=== PATIENT | male | born 1945 | race Hispanic/Latino ===

== ENCOUNTER 2016-05-09 11:07 | Inpatient (IN) | payer MEDICARE ==
[2016-05-09] MEDS ORDERED: ATROVENT IH ONE (12:21)
[2016-05-09] MEDS ORDERED: PROVENTIL IH ONE (12:21)
--- NOTE | 2016-05-09 12:21 | Emergency Department Report ---
Chief Complaint: Urogenital-Male Stated Complaint: BLOOD IN URINE Time Seen by Provider: 05/09/16 12:16 - HPI History of Present Illness: Patient here reports that he has blood in his urine. Patient is on Zaroxolyn oh for A. fib he's also on. He reports that his doctor sent him over here because he is having bright red blood in his urine. Patient has a history of COPD stage IV, emphysema he is on oxygen 24 7. He reports that he is having shortness of breath and slight chest pain to his left chest area. He is also reports swelling and redness to his bilateral lower extremities. Patient said that he was at the [place] 2 weeks ago and he had a chest x-ray done he diagnosed him with pneumonia and he was on Augmentin which she took for 14 days. Patient has a history of diabetes also. - ROS Review of Systems: All systems are negative unless stated in HPI above. - Exam Vital Signs: Vital Signs 05/09/16 11:55 Temperature 98.5 F Pulse Rate 80 Respiratory 24 Rate Blood Pressure 118/58 O2 Sat by Pulse 100 Oximetry Physical Exam: General: This is a 71-year-old male that looks sick. Respiratory: Sounds coarse throughout lung matthews. Positive congested cough. Positive rhonchi. He is on oxygen and his O2 sat is that 100% on oxygen. Increased work of breathing. Extremity. Both feet and ankle swollen with redness extending from toes to the dorsal aspect of feet anteriorly. Palpable pedal pulses. MSE screening note: Focused history and physical exam performed. Due to findings the following was ordered:see [facility] ED Medical Decision Making - Medical Decision Making Medical decision making: Patient seen by provider in triage area. Appropriate protocol activated and patient to main ED to be seen by physician. ED Disposition for MSE Condition: Stable
[2016-05-09 14:02] LABS: Basophils % (Auto) 0.5 % (0.0-1.8); Eosinophils % (Auto) 1.7 % (0.0-4.3); Hematocrit 44.3 % (35.5-45.6); Hemoglobin 14.2 gm/dl (11.8-15.2); Mean Corpuscular HGB Conc 32 % (32-34); Mean Corpuscular Hemoglobin 29 pg (28-32); Mean Corpuscular Volume 89 fl (84-94); Platelet Count 393 K/mm3 (140-440); Red Blood Count 4.96 M/mm3 (3.65-5.03); Red Cell Distribution Width 13.7 % (13.2-15.2); White Blood Count 16.7 K/mm3 (4.5-11.0)
[2016-05-09 14:10] LABS: INR 0.99 (0.87-1.13)
[2016-05-09 14:11] LABS: Partial Thromboplastin Time 28.4 Sec. (24.2-36.6)
[2016-05-09 14:18] LABS: Blood Urea Nitrogen 8 mg/dL (9-20); Calcium 9.4 mg/dL (8.4-10.2); Carbon Dioxide 33 mmol/L (22-30); Chloride 86.1 mmol/L (98-107); Glucose 140 mg/dL (75-100); Potassium 4.4 mmol/L (3.6-5.0); Sodium 129 mmol/L (137-145)
[2016-05-09 14:19] LABS: Anion Gap 14 mmol/L
[2016-05-09 14:20] LABS: Creatine Kinase MB 4.5 ng/mL (0.0-4.0)
[2016-05-09 14:21] LABS: Creatine Kinase 42 units/L (55-170)
--- NOTE | 2016-05-09 14:41 | Cat Scan Report ---
CT ABDOMEN AND PELVIS WITHOUT CONTRAST INDICATION: Hematuria. COMPARISON: 03/07/2012 FINDINGS: Noncontrast abdomen and pelvis CT performed. LUNG BASES: Approximately 1.2 cm focal nodular and other more inferior probable lingular scarring, axial series 2, images 3-25, previously partially imaged. Normal heart size. Few atherosclerotic calcifications. Nonspecific distal esophageal wall thickening, not excluded for gastroesophageal reflux and/or hiatal hernia, amongst others. ABDOMEN: Please note that sensitivity to detect small visceral lesions is limited due to the absence of intravenous or oral contrast. Mild interval enlargement of the right hemiabdomen soft tissue mass situated near the pancreatic head with its origin possibly from the second portion of the duodenum or the mesentery, amongst others. It again demonstrates some intrinsic heterogeneity with small low density/necrotic areas. It now measures 6.8 cm AP x 6.1 cm transverse, previously approximately 5.5 x 5.7 cm respectively. Few small calcifications in this mass also noted on the left peripherally, axial images 134-155. No duodenal obstruction, though evaluation of nonopacified GI tract limited. Normal appendix. Slight diffuse fatty hepatic infiltration may persist, though appears much improved in the interval. Mild pericholecystic fatty sparing may be noted. Mild left adrenal prominence/enlargement is stable, axial image 87. Otherwise grossly unremarkable unenhanced liver, spleen, gallbladder, pancreas, right adrenal, nonaneurysmal abdominal aorta with atherosclerotic calcifications and IVC. No ascites or significant adenopathy. Specifically, few bilateral intrarenal calculi again noted. 2 or possibly 3 right upper to mid renal measure upto approximately 5 mm, axial image 108, series 2. A calculus lodged at the right ureteropelvic junction/proximal ureter again noted, now approximately 8 mm in size, axial image 144, series 2, previously 5 mm. Right renal pelvis again slightly prominent relative to the left, though well within normal limits without significant hydronephrosis. Possible right renal cortical cyst or calyceal diverticulum superiorly now measures 3.7 x 2 cm, previously approximately 2 cm. Few right lower renal cortical hypodensities/cysts also now seen measuring up to 1.8 cm, axial image 154, series 2. Left kidney nonhydronephrotic and again demonstrates at least 3 nonobstructing lower pole calculi, the largest approximately 8 mm, axial image 154. Multiple left renal cysts again noted, the largest ones measuring approximately 3.8 cm superiorly and approximately 6.2 cm inferiorly and partly exophytic. At least 2 other left lower renal cortical cysts appearing simple previously are now somewhat hyperdense/possibly hemorrhagic as measuring approximately 1.9 cm anteriorly, axial image 155 and approximately 2 cm off the lower pole, axial image 186, amongst others. PELVIS: Mildly enlarged prostate creating an impression at the bladder base may be correlated for clinically and with PSA. Small prostatic calcifications. Otherwise grossly unremarkable unenhanced urinary bladder, seminal vesicles and the rectum. Innumerable sigmoid and multiple descending colon diverticula. No pelvic free fluid or significant adenopathy. Bilateral fat containing inguinal hernias measuring up to approximately 2.5 cm inferiorly as on axial image 381, series 2 again noted. Demineralized bones with severe L5-S1 disc narrowing with vacuum phenomenon, degenerative spurring and some sclerosis again noted. Few other mild spinal and right hip degenerative changes. CONCLUSION: 1. Mild interval enlargement in large right hemiabdomen mesenteric/duodenal soft tissue mass about the level of the pancreatic head, as described. A slow-growing neoplasm again remains to be excluded, given the appearance. 2. Bilateral nephrolithiasis again noted, stable in number, though slightly more prominent in size, including the right ureteropelvic junction/proximal ureteral calculus measuring slightly larger, as detailed above. 3. Multiple bilateral renal cysts also noted, some new in the interval while some others have become mildly complex/possibly hemorrhagic, as detailed above. 4. Interval improvement in fatty hepatic infiltration. 5. Various other incidental findings, including lingular scarring, diverticulosis, mildly enlarged prostate, small bilateral fat containing inguinal hernias and L5-S1 degenerative changes, amongst others, as above. Thank you for the opportunity to participate in this patient's care.
[2016-05-09 14:53] LABS: Bilirubin,Urine NEG (Negative); Blood,Urine LG (Negative); Ketones,Urine NEG (Negative); Leukocyte Esterase,Urine TR (Negative); Mucus,Urine 1+ /HPF; Nitrite,Urine NEG (Negative); Urobilinogen,Urine < 2.0 mg/dL (<2.0)
[2016-05-09 14:54] LABS: RBC,Urine > 182.0 /HPF (0.0-6.0); WBC,Urine > 182.0 /HPF (0.0-6.0)
--- NOTE | 2016-05-09 14:55 | XRay Report ---
PORTABLE CHEST INDICATION: Cough, shortness of breath. COMPARISON: 03/31/2014 FINDINGS: Portable, frontal chest radiographs, 2 images again demonstrate normal cardiomediastinal silhouette, aortic knob calcifications and hyperexpanded lungs/COPD. Minimal fluid or thickening along the right minor fissure also now seen. No pleural effusions or CHF. EKG leads. Demineralized bones. CONCLUSION: No acute chest process with COPD again noted, as described. Thank you for the opportunity to participate in this patient's care.
[2016-05-09] MEDS ORDERED: ROCEPHIN/NS 1 GM/50 ML 50 ML IV ONE ×2 (16:00→20:00)
--- NOTE | 2016-05-09 17:29 | Emergency Department Report ---
HPI - General Chief Complaint: Urogenital-Male Time Seen by Provider: 05/09/16 15:00 - HPI HPI: Chief complaint: Hematuria HPI: Patient is a 71-year-old male with history of COPD, atrial fibrillation, hypertension, diabetes who is on is a relative who states about 3 days ago he noticed he had gross hematuria. Patient states he stopped his relative but he has continued to have blood in his stool ever since. Patient states about 2 weeks ago he was seen [facility] early [facility] and was placed on 850 mg of Augmentin twice a day as well as a Medrol Dosepak which he has finished just yesterday. Patient does complain of some minimal dysuria but no abdominal pain, fever, nausea or diarrhea. Patient has had a previous history of a kidney stone. Patient states he is no longer coughing up yellow sputum and is now clear to white and has decreased. Mode of arrival: EMS Source: Patient old chart family member Began: 3 days ago Duration: 3 days Context: See above Quality: Pain-free Severity: 0 out of 10 Improved with: Nothing Worsened with: Nothing Associated signs and symptoms: See above ED Past Medical Hx - Past Medical History Previous Medical History?: Yes Hx Hypertension: Yes Hx Congestive Heart Failure: Yes Hx Diabetes: Yes Hx Arthritis: Yes Hx COPD: Yes Additional medical history: high cholesterol - Surgical History Additional Surgical History: R. knee repair, hernia repair - Social History Smoking Status: Former Smoker Substance Use Type: None - Medications Home Medications: Home Medications Medication Instructions Recorded Confirmed Last Taken Type ALBUTEROL Inhaler [ProAir HFA 2 puff IH QID PRN 03/31/14 05/09/16 Unknown History Inhaler] Albuterol Sulfate [Albuterol 0.63% 0.63 mg IH BID PRN 03/31/14 05/09/16 Unknown History NEBS] Tiotropium [Spiriva] 18 mcg IH QDAY 03/31/14 05/09/16 Unknown History glipiZIDE [glipiZIDE ER] 5 mg PO QAM 03/31/14 05/09/16 Unknown History metFORMIN [Glucophage] 1,000 mg PO BID 03/31/14 05/09/16 Unknown History Diltiazem Cd [Cardizem CD] 180 mg PO QDAY #30 capsule 04/01/14 05/09/16 Unknown Rx Rivaroxaban [Xarelto] 20 mg PO QDAY #30 tablet 04/01/14 05/09/16 Unknown Rx AtorvaSTATin [Lipitor] 40 mg PO DAILY 05/09/16 05/09/16 Unknown History Azelastine HCl [Astepro] 205.5 mcg NS DAILY 05/09/16 05/09/16 Unknown History Fluticasone Propionate [Flovent 2 puff IH QPM PRN 05/09/16 05/09/16 Unknown History Diskus] Formoterol Fumarate [Foradil] 24 mcg IH BID 05/09/16 05/09/16 Unknown History Loratadine 10 mg PO DAILY 05/09/16 05/09/16 Unknown History Spironolact/Hydrochlorothiazid 1 each PO QDAY 05/09/16 05/09/16 Unknown History [Spironolactone-Hctz 25-25 Tab] Zolpidem Tartrate [Edluar SUBL] 10 mg SL QHS PRN 05/09/16 05/09/16 Unknown History ED Review of Systems ROS: Stated complaint: BLOOD IN URINE Other details as noted in HPI ROS Constitutional: No fever ENT: No uri symptoms Cardiovascular: No chest pain Respiratory: Chronic sob on home O2 and resolving cough GI: No nausea vomiting or diarrhea : No dysuria frequency or urgency, Skin: No rash Neuro: No focal weakness or numbness Psych: No depression Kenan/lymph: Intermittent pedal edema states previous Doppler is negative for DVT Physical Exam - Physical Exam Vital Signs: Vital Signs 05/09/16 05/09/16 05/09/16 11:55 12:42 13:00 Temperature 98.5 F Pulse Rate 80 Pulse Rate [ 87 87 Anterior Bilateral Throughout] Respiratory 24 Rate Respiratory 20 20 Rate [Anterior Bilateral Throughout] Blood Pressure 118/58 O2 Sat by Pulse 100 Oximetry 05/09/16 05/09/16 05/09/16 14:04 14:05 14:07 Temperature Pulse Rate 91 H 97 H 93 H Pulse Rate [ Anterior Bilateral Throughout] Respiratory 15 18 12 Rate Respiratory Rate [Anterior Bilateral Throughout] Blood Pressure O2 Sat by Pulse 97 97 96 Oximetry 05/09/16 05/09/16 05/09/16 14:09 14:11 14:13 Temperature Pulse Rate 94 H 91 H 91 H Pulse Rate [ Anterior Bilateral Throughout] Respiratory 27 H 21 18 Rate Respiratory Rate [Anterior Bilateral Throughout] Blood Pressure O2 Sat by Pulse 96 96 96 Oximetry 05/09/16 05/09/16 05/09/16 14:15 14:17 14:19 Temperature Pulse Rate 91 H 94 H 94 H Pulse Rate [ Anterior Bilateral Throughout] Respiratory 20 16 20 Rate Respiratory Rate [Anterior Bilateral Throughout] Blood Pressure 104/52 104/52 O2 Sat by Pulse 97 97 96 Oximetry 05/09/16 05/09/16 05/09/16 14:21 14:23 14:25 Temperature Pulse Rate 92 H 91 H 92 H Pulse Rate [ Anterior Bilateral Throughout] Respiratory 27 H 18 23 Rate Respiratory Rate [Anterior Bilateral Throughout] Blood Pressure 104/52 104/52 104/52 O2 Sat by Pulse 96 96 96 Oximetry 05/09/16 05/09/16 05/09/16 14:27 14:29 14:31 Temperature Pulse Rate 95 H 92 H 88 Pulse Rate [ Anterior Bilateral Throughout] Respiratory 24 22 17 Rate Respiratory Rate [Anterior Bilateral Throughout] Blood Pressure 104/52 104/52 104/52 O2 Sat by Pulse 95 94 Oximetry 05/09/16 05/09/16 05/09/16 14:33 14:35 15:15 Temperature Pulse Rate 90 89 88 Pulse Rate [ Anterior Bilateral Throughout] Respiratory 16 13 19 Rate Respiratory Rate [Anterior Bilateral Throughout] Blood Pressure 104/52 104/52 125/66 O2 Sat by Pulse 94 97 96 Oximetry 05/09/16 05/09/16 05/09/16 15:17 15:19 15:21 Temperature Pulse Rate 90 88 91 H Pulse Rate [ Anterior Bilateral Throughout] Respiratory 14 11 L 16 Rate Respiratory Rate [Anterior Bilateral Throughout] Blood Pressure 125/66 125/66 125/66 O2 Sat by Pulse 97 96 96 Oximetry 05/09/16 05/09/16 05/09/16 15:22 15:23 15:25 Temperature Pulse Rate 89 92 H 86 Pulse Rate [ Anterior Bilateral Throughout] Respiratory 21 15 15 Rate Respiratory Rate [Anterior Bilateral Throughout] Blood Pressure 125/66 125/66 125/66 O2 Sat by Pulse 96 96 94 Oximetry 05/09/16 05/09/16 05/09/16 15:27 15:29 15:31 Temperature Pulse Rate 89 92 H 88 Pulse Rate [ Anterior Bilateral Throughout] Respiratory 15 21 21 Rate Respiratory Rate [Anterior Bilateral Throughout] Blood Pressure 125/66 125/66 125/66 O2 Sat by Pulse 97 95 96 Oximetry 05/09/16 05/09/16 05/09/16 15:33 15:35 15:37 Temperature Pulse Rate 92 H 93 H 91 H Pulse Rate [ Anterior Bilateral Throughout] Respiratory 18 11 L 24 Rate Respiratory Rate [Anterior Bilateral Throughout] Blood Pressure 125/66 125/66 125/66 O2 Sat by Pulse 97 97 96 Oximetry 05/09/16 05/09/16 05/09/16 15:39 15:41 15:43 Temperature Pulse Rate 91 H 91 H 91 H Pulse Rate [ Anterior Bilateral Throughout] Respiratory 16 19 21 Rate Respiratory Rate [Anterior Bilateral Throughout] Blood Pressure 125/66 125/66 125/66 O2 Sat by Pulse 95 94 93 Oximetry 05/09/16 05/09/16 05/09/16 15:45 15:47 15:49 Temperature Pulse Rate 93 H 89 90 Pulse Rate [ Anterior Bilateral Throughout] Respiratory 21 12 16 Rate Respiratory Rate [Anterior Bilateral Throughout] Blood Pressure 125/66 125/66 125/66 O2 Sat by Pulse 96 96 96 Oximetry 05/09/16 05/09/16 05/09/16 15:51 15:53 15:55 Temperature Pulse Rate 91 H 91 H 92 H Pulse Rate [ Anterior Bilateral Throughout] Respiratory 21 15 15 Rate Respiratory Rate [Anterior Bilateral Throughout] Blood Pressure 125/66 125/66 125/66 O2 Sat by Pulse 94 97 96 Oximetry 05/09/16 05/09/16 05/09/16 15:57 15:59 16:00 Temperature Pulse Rate 88 92 H 86 Pulse Rate [ Anterior Bilateral Throughout] Respiratory 26 H 17 20 Rate Respiratory Rate [Anterior Bilateral Throughout] Blood Pressure 125/66 125/66 111/66 O2 Sat by Pulse 98 96 97 Oximetry 05/09/16 05/09/16 05/09/16 16:01 16:03 16:05 Temperature Pulse Rate 87 85 90 Pulse Rate [ Anterior Bilateral Throughout] Respiratory 23 10 L 15 Rate Respiratory Rate [Anterior Bilateral Throughout] Blood Pressure 111/66 111/66 111/66 O2 Sat by Pulse 96 98 97 Oximetry 05/09/16 05/09/16 05/09/16 16:07 16:09 16:11 Temperature Pulse Rate 86 86 88 Pulse Rate [ Anterior Bilateral Throughout] Respiratory 13 21 14 Rate Respiratory Rate [Anterior Bilateral Throughout] Blood Pressure 111/66 111/66 111/66 O2 Sat by Pulse 98 98 98 Oximetry 05/09/16 05/09/16 05/09/16 16:13 16:15 16:17 Temperature Pulse Rate 88 83 85 Pulse Rate [ Anterior Bilateral Throughout] Respiratory 18 19 20 Rate Respiratory Rate [Anterior Bilateral Throughout] Blood Pressure 111/66 111/66 111/66 O2 Sat by Pulse 98 99 98 Oximetry 05/09/16 05/09/16 05/09/16 16:19 16:21 16:23 Temperature Pulse Rate 83 90 85 Pulse Rate [ Anterior Bilateral Throughout] Respiratory 14 18 19 Rate Respiratory Rate [Anterior Bilateral Throughout] Blood Pressure 111/66 111/66 111/66 O2 Sat by Pulse 99 98 98 Oximetry 05/09/16 05/09/16 05/09/16 16:25 16:27 16:29 Temperature Pulse Rate 87 83 89 Pulse Rate [ Anterior Bilateral Throughout] Respiratory 17 15 19 Rate Respiratory Rate [Anterior Bilateral Throughout] Blood Pressure 111/66 111/66 111/66 O2 Sat by Pulse 98 98 98 Oximetry 05/09/16 05/09/16 05/09/16 16:31 16:33 16:35 Temperature Pulse Rate 85 83 83 Pulse Rate [ Anterior Bilateral Throughout] Respiratory 20 20 18 Rate Respiratory Rate [Anterior Bilateral Throughout] Blood Pressure 111/66 111/66 111/66 O2 Sat by Pulse 98 99 99 Oximetry 05/09/16 05/09/16 05/09/16 16:37 16:39 16:41 Temperature Pulse Rate 86 87 80 Pulse Rate [ Anterior Bilateral Throughout] Respiratory 25 H 22 21 Rate Respiratory Rate [Anterior Bilateral Throughout] Blood Pressure 111/66 111/66 111/66 O2 Sat by Pulse 98 99 98 Oximetry 05/09/16 05/09/16 05/09/16 16:43 16:45 16:47 Temperature Pulse Rate 89 88 85 Pulse Rate [ Anterior Bilateral Throughout] Respiratory 18 15 19 Rate Respiratory Rate [Anterior Bilateral Throughout] Blood Pressure 111/66 111/66 111/66 O2 Sat by Pulse 98 98 98 Oximetry 05/09/16 05/09/16 16:49 16:57 Temperature Pulse Rate 85 Pulse Rate [ Anterior Bilateral Throughout] Respiratory 22 16 Rate Respiratory Rate [Anterior Bilateral Throughout] Blood Pressure 111/66 O2 Sat by Pulse 99 97 Oximetry Physical Exam: GENERAL: The patient is well-developed well-nourished . Patient on O2 via nasal cannula HEENT: Normocephalic. Atraumatic. Extraocular motions are intact. Patient has moist mucous membranes. NECK: Supple. No meningitic signs are noted. There is no adenopathy noted. CHEST/LUNGS: Occasional expiratory wheezes. There is no respiratory distress noted. HEART/CARDIOVASCULAR: Regular. There is no tachycardia. There is no gallop rub or murmur. ABDOMEN: Abdomen is soft, nontender. Patient has normal bowel sounds. There is no abdominal distention. SKIN: There is no rash. There is 2+ bilateral pedal edema. There is no diaphoresis. NEURO: The patient is awake, alert, and oriented. The patient is cooperative. The patient has no focal neurologic deficits. The patient has normal speech. MUSCULOSKELETAL: There is no tenderness or deformity. There is no evidence of acute injury. ED Course Vital Signs 05/09/16 05/09/16 05/09/16 11:55 12:42 13:00 Temperature 98.5 F Pulse Rate 80 Pulse Rate [ 87 87 Anterior Bilateral Throughout] Respiratory 24 Rate Respiratory 20 20 Rate [Anterior Bilateral Throughout] Blood Pressure 118/58 O2 Sat by Pulse 100 Oximetry 05/09/16 05/09/16 05/09/16 14:04 14:05 14:07 Temperature Pulse Rate 91 H 97 H 93 H Pulse Rate [ Anterior Bilateral Throughout] Respiratory 15 18 12 Rate Respiratory Rate [Anterior Bilateral Throughout] Blood Pressure O2 Sat by Pulse 97 97 96 Oximetry 05/09/16 05/09/16 05/09/16 14:09 14:11 14:13 Temperature Pulse Rate 94 H 91 H 91 H Pulse Rate [ Anterior Bilateral Throughout] Respiratory 27 H 21 18 Rate Respiratory Rate [Anterior Bilateral Throughout] Blood Pressure O2 Sat by Pulse 96 96 96 Oximetry 05/09/16 05/09/16 05/09/16 14:15 14:17 14:19 Temperature Pulse Rate 91 H 94 H 94 H Pulse Rate [ Anterior Bilateral Throughout] Respiratory 20 16 20 Rate Respiratory Rate [Anterior Bilateral Throughout] Blood Pressure 104/52 104/52 O2 Sat by Pulse 97 97 96 Oximetry 05/09/16 05/09/16 05/09/16 14:21 14:23 14:25 Temperature Pulse Rate 92 H 91 H 92 H Pulse Rate [ Anterior Bilateral Throughout] Respiratory 27 H 18 23 Rate Respiratory Rate [Anterior Bilateral Throughout] Blood Pressure 104/52 104/52 104/52 O2 Sat by Pulse 96 96 96 Oximetry 05/09/16 05/09/16 05/09/16 14:27 14:29 14:31 Temperature Pulse Rate 95 H 92 H 88 Pulse Rate [ Anterior Bilateral Throughout] Respiratory 24 22 17 Rate Respiratory Rate [Anterior Bilateral Throughout] Blood Pressure 104/52 104/52 104/52 O2 Sat by Pulse 95 94 Oximetry 05/09/16 05/09/16 05/09/16 14:33 14:35 15:15 Temperature Pulse Rate 90 89 88 Pulse Rate [ Anterior Bilateral Throughout] Respiratory 16 13 19 Rate Respiratory Rate [Anterior Bilateral Throughout] Blood Pressure 104/52 104/52 125/66 O2 Sat by Pulse 94 97 96 Oximetry 05/09/16 05/09/16 05/09/16 15:17 15:19 15:21 Temperature Pulse Rate 90 88 91 H Pulse Rate [ Anterior Bilateral Throughout] Respiratory 14 11 L 16 Rate Respiratory Rate [Anterior Bilateral Throughout] Blood Pressure 125/66 125/66 125/66 O2 Sat by Pulse 97 96 96 Oximetry 05/09/16 05/09/16 05/09/16 15:22 15:23 15:25 Temperature Pulse Rate 89 92 H 86 Pulse Rate [ Anterior Bilateral Throughout] Respiratory 21 15 15 Rate Respiratory Rate [Anterior Bilateral Throughout] Blood Pressure 125/66 125/66 125/66 O2 Sat by Pulse 96 96 94 Oximetry 05/09/16 05/09/16 05/09/16 15:27 15:29 15:31 Temperature Pulse Rate 89 92 H 88 Pulse Rate [ Anterior Bilateral Throughout] Respiratory 15 21 21 Rate Respiratory Rate [Anterior Bilateral Throughout] Blood Pressure 125/66 125/66 125/66 O2 Sat by Pulse 97 95 96 Oximetry 05/09/16 05/09/16 05/09/16 15:33 15:35 15:37 Temperature Pulse Rate 92 H 93 H 91 H Pulse Rate [ Anterior Bilateral Throughout] Respiratory 18 11 L 24 Rate Respiratory Rate [Anterior Bilateral Throughout] Blood Pressure 125/66 125/66 125/66 O2 Sat by Pulse 97 97 96 Oximetry 05/09/16 05/09/16 05/09/16 15:39 15:41 15:43 Temperature Pulse Rate 91 H 91 H 91 H Pulse Rate [ Anterior Bilateral Throughout] Respiratory 16 19 21 Rate Respiratory Rate [Anterior Bilateral Throughout] Blood Pressure 125/66 125/66 125/66 O2 Sat by Pulse 95 94 93 Oximetry 05/09/16 05/09/16 05/09/16 15:45 15:47 15:49 Temperature Pulse Rate 93 H 89 90 Pulse Rate [ Anterior Bilateral Throughout] Respiratory 21 12 16 Rate Respiratory Rate [Anterior Bilateral Throughout] Blood Pressure 125/66 125/66 125/66 O2 Sat by Pulse 96 96 96 Oximetry 05/09/16 05/09/16 05/09/16 15:51 15:53 15:55 Temperature Pulse Rate 91 H 91 H 92 H Pulse Rate [ Anterior Bilateral Throughout] Respiratory 21 15 15 Rate Respiratory Rate [Anterior Bilateral Throughout] Blood Pressure 125/66 125/66 125/66 O2 Sat by Pulse 94 97 96 Oximetry 05/09/16 05/09/16 05/09/16 15:57 15:59 16:00 Temperature Pulse Rate 88 92 H 86 Pulse Rate [ Anterior Bilateral Throughout] Respiratory 26 H 17 20 Rate Respiratory Rate [Anterior Bilateral Throughout] Blood Pressure 125/66 125/66 111/66 O2 Sat by Pulse 98 96 97 Oximetry 05/09/16 05/09/16 05/09/16 16:01 16:03 16:05 Temperature Pulse Rate 87 85 90 Pulse Rate [ Anterior Bilateral Throughout] Respiratory 23 10 L 15 Rate Respiratory Rate [Anterior Bilateral Throughout] Blood Pressure 111/66 111/66 111/66 O2 Sat by Pulse 96 98 97 Oximetry 05/09/16 05/09/16 05/09/16 16:07 16:09 16:11 Temperature Pulse Rate 86 86 88 Pulse Rate [ Anterior Bilateral Throughout] Respiratory 13 21 14 Rate Respiratory Rate [Anterior Bilateral Throughout] Blood Pressure 111/66 111/66 111/66 O2 Sat by Pulse 98 98 98 Oximetry 05/09/16 05/09/16 05/09/16 16:13 16:15 16:17 Temperature Pulse Rate 88 83 85 Pulse Rate [ Anterior Bilateral Throughout] Respiratory 18 19 20 Rate Respiratory Rate [Anterior Bilateral Throughout] Blood Pressure 111/66 111/66 111/66 O2 Sat by Pulse 98 99 98 Oximetry 05/09/16 05/09/16 05/09/16 16:19 16:21 16:23 Temperature Pulse Rate 83 90 85 Pulse Rate [ Anterior Bilateral Throughout] Respiratory 14 18 19 Rate Respiratory Rate [Anterior Bilateral Throughout] Blood Pressure 111/66 111/66 111/66 O2 Sat by Pulse 99 98 98 Oximetry 05/09/16 05/09/16 05/09/16 16:25 16:27 16:29 Temperature Pulse Rate 87 83 89 Pulse Rate [ Anterior Bilateral Throughout] Respiratory 17 15 19 Rate Respiratory Rate [Anterior Bilateral Throughout] Blood Pressure 111/66 111/66 111/66 O2 Sat by Pulse 98 98 98 Oximetry 05/09/16 05/09/16 05/09/16 16:31 16:33 16:35 Temperature Pulse Rate 85 83 83 Pulse Rate [ Anterior Bilateral Throughout] Respiratory 20 20 18 Rate Respiratory Rate [Anterior Bilateral Throughout] Blood Pressure 111/66 111/66 111/66 O2 Sat by Pulse 98 99 99 Oximetry 05/09/16 05/09/16 05/09/16 16:37 16:39 16:41 Temperature Pulse Rate 86 87 80 Pulse Rate [ Anterior Bilateral Throughout] Respiratory 25 H 22 21 Rate Respiratory Rate [Anterior Bilateral Throughout] Blood Pressure 111/66 111/66 111/66 O2 Sat by Pulse 98 99 98 Oximetry 05/09/16 05/09/16 05/09/16 16:43 16:45 16:47 Temperature Pulse Rate 89 88 85 Pulse Rate [ Anterior Bilateral Throughout] Respiratory 18 15 19 Rate Respiratory Rate [Anterior Bilateral Throughout] Blood Pressure 111/66 111/66 111/66 O2 Sat by Pulse 98 98 98 Oximetry 05/09/16 05/09/16 16:49 16:57 Temperature Pulse Rate 85 Pulse Rate [ Anterior Bilateral Throughout] Respiratory 22 16 Rate Respiratory Rate [Anterior Bilateral Throughout] Blood Pressure 111/66 O2 Sat by Pulse 99 97 Oximetry - Reevaluation(s) Reevaluation #1: 05/09/16 Patient's urine was cultured and he was given 1 g of IV Rocephin. Patient admitted to the hospitalist ED Medical Decision Making - Lab Data Result diagrams: 05/09/16 13:37 05/09/16 13:37 Laboratory Tests 05/09/16 05/09/16 05/09/16 13:37 13:37 13:37 PT 13.0 INR 0.99 APTT 28.4 Total Creatine Kinase 42 L CK-MB (CK-2) 4.5 H CK-MB (CK-2) Rel Index 10.7 H Troponin T < 0.010 NT-Pro-B Natriuret Pep 89.36 Urine Blood Ur Leukocyte Esterase Urine WBC (Auto) Urine RBC (Auto) U Epithel Cells (Auto) 05/09/16 14:40 PT INR APTT Total Creatine Kinase CK-MB (CK-2) CK-MB (CK-2) Rel Index Troponin T NT-Pro-B Natriuret Pep Urine Blood Lg Ur Leukocyte Esterase Tr Urine WBC (Auto) > 182.0 H Urine RBC (Auto) > 182.0 U Epithel Cells (Auto) 2.0 - EKG Data -: EKG Interpreted by Me EKG shows normal: sinus rhythm Rate: normal (88) - EKG Data When compared to previous EKG there are: no significant change - Radiology Data Radiology results: report reviewed (chest x-ray shows no acute process. CT of the abdomen shows a mild anterolateral enlargement in the large right alexandr- abdomen mesenteric/duodenal soft tissue mass at the level of the pancreatic head. Bilateral nephrolithiasis is again noted stable and number though slightly more prominent in size including the right ureteropelvic junction/ proximal ureteral calculus measuring slightly larger. No hydronephrosis. Multiple renal cysts some new possibly hemorrhagic.) Critical care attestation.: If time is entered above; I have spent that time in minutes in the direct care of this critically ill patient, excluding procedure time. ED Disposition Clinical Impression: UTI (urinary tract infection) Qualifiers: Urinary tract infection type: site unspecified Hematuria presence: with hematuria Qualified Code(s): N39.0 - Urinary tract infection, site not specified Disposition: OP ADMITTED IP TO THIS HOSP Is pt being admited?: Yes Does the pt Need Aspirin: Yes Condition: Stable Time of Disposition: 15:35
--- NOTE | 2016-05-09 17:42 | History and Physical Report ---
History of Present Illness Date of examination: 05/09/16 Date of admission: 05/09/16 16:03 Chief complaint: blood in the urine for 2 days History of present illness: Miss Avila presented to the ER with blood in the urine for 2 days; dark colored ; no clots; no burning on micturition; no frequency; was treated recently for pneumonia and completed 13 days of augmentin yesterday and steroids; no h/o prostate issues; no fever; he takes xarelto for A. Fib and stopped it when he noticed the blood Past History Past Medical History: COPD (on home oxygen), diabetes, hypertension, other ( atrial fib ) Past Surgical History: Other (knee,incarcirated hernia; ) Social history: full code. denies: smoking (stopped years ago), alcohol abuse, prescription drug abuse, IV drug use Family history: hypertension Medications and Allergies Allergies Allergy/AdvReac Type Severity Reaction Status Date / Time No Known Allergies Allergy Unverified 03/31/14 09:06 Home Medications Medication Instructions Recorded Confirmed Last Taken Type ALBUTEROL Inhaler [ProAir HFA 2 puff IH QID PRN 03/31/14 05/09/16 Unknown History Inhaler] Albuterol Sulfate [Albuterol 0.63% 0.63 mg IH BID PRN 03/31/14 05/09/16 Unknown History NEBS] Tiotropium [Spiriva] 18 mcg IH QDAY 03/31/14 05/09/16 Unknown History glipiZIDE [glipiZIDE ER] 5 mg PO QAM 03/31/14 05/09/16 Unknown History metFORMIN [Glucophage] 1,000 mg PO BID 03/31/14 05/09/16 Unknown History Diltiazem Cd [Cardizem CD] 180 mg PO QDAY #30 capsule 04/01/14 05/09/16 Unknown Rx Rivaroxaban [Xarelto] 20 mg PO QDAY #30 tablet 04/01/14 05/09/16 Unknown Rx AtorvaSTATin [Lipitor] 40 mg PO DAILY 05/09/16 05/09/16 Unknown History Azelastine HCl [Astepro] 205.5 mcg NS DAILY 05/09/16 05/09/16 Unknown History Fluticasone Propionate [Flovent 2 puff IH QPM PRN 05/09/16 05/09/16 Unknown History Diskus] Formoterol Fumarate [Foradil] 24 mcg IH BID 05/09/16 05/09/16 Unknown History Loratadine 10 mg PO DAILY 05/09/16 05/09/16 Unknown History Spironolact/Hydrochlorothiazid 1 each PO QDAY 05/09/16 05/09/16 Unknown History [Spironolactone-Hctz 25-25 Tab] Zolpidem Tartrate [Edluar SUBL] 10 mg SL QHS PRN 05/09/16 05/09/16 Unknown History Review of Systems All systems: negative Constitutional: no weight loss, no weight gain, no fever, no chills, no anorexia , no fatigue Ears, nose, mouth and throat: no ear pain, no ear discharge, no tinnitis, no decreased hearing Cardiovascular: no chest pain, no orthopnea, no palpitations, no rapid/ irregular heart beat Respiratory: home oxygen, no cough, no cough with sputum, no excessive sputum, no hemoptysis, no shortness of breath Gastrointestinal: no abdominal pain, no nausea, no vomiting, no diarrhea, no constipation Genitourinary Male: other (as in [facility]) Rectal: no pain, no incontinence, no bleeding Musculoskeletal: no neck stiffness, no neck pain, no shooting arm pain, no arm numbness/tingling Integumentary: no rash, no pruritis, no redness, no sores Neurological: no head injury, no transient paralysis, no paralysis Exam - Constitutional Vitals: Temp Pulse Resp BP Pulse Ox 98.5 F 85 16 111/66 97 05/09/16 11:55 05/09/16 16:49 05/09/16 16:57 05/09/16 16:49 05/09/16 16:57 General appearance: Present: no acute distress, well-nourished - EENT Eyes: Present: PERRL, EOM intact. Absent: scleral icterus, conjunctival injection ENT: hearing intact, clear oral mucosa, no oropharyngeal erythema, no poor dentition - Neck Neck: Present: supple, normal ROM. Absent: enlarged thyroid, masses or JVD - Respiratory Respiratory effort: normal Respiratory: negative: diminished, rales, rhonchi, wheezing - Cardiovascular Rhythm: regular Heart Sounds: Present: S1 & S2. Absent: gallop - Extremities Extremities: no ischemia, pulses intact, pulses symmetrical, No edema Peripheral Pulses: within normal limits - Abdominal General gastrointestinal: Present: soft, non-tender, non-distended, normal bowel sounds Male genitourinary: Present: deferred - Rectal Rectal Exam: deferred - Integumentary Integumentary: Present: clear, warm - Musculoskeletal Musculoskeletal: strength equal bilaterally - Psychiatric Psychiatric: appropriate mood/affect, intact judgment & insight, cooperative - Neurologic Neurologic: CNII-XII intact, moves all extremities Results - Labs CBC & Chem 7: 05/09/16 13:37 05/09/16 13:37 - Imaging and Cardiology Chest x-ray: report reviewed (cxr-acute chest process with COPD changes) CT scan - abdomen: report reviewed (CT scan of the abdomen and pelvis-mild interval enlargement in the right hemiabdomen mesenteric/duodenal soft tissue mass about the level of the pancreatic head. Slow growing neoplasm again remains to be excluded. Bilateral nephrolithiasis stable in nature. Slight more prominent in size, including the right ureteropelvic junction/proximal ureteral calculus measuring slightly larger. Multiple bilateral renal cyst. Interval improvement in the fatty hepatic infiltration. Diverticulosis, mild enlarged prostate, small bilateral fat-containing inguinal hernia) Assessment and Plan 1. Cystitis with hematuria- admit as an inpatient as more than 2 midnights are required for treatment, we'll follow-up with urine culture. We'll start patient on IV Rocephin. IV fluids for gentle hydration. We'll consult urology if no improvement in the hematuria. 2. Atrial fibrillation-rate [id number] medications with Cardizem. Will continue to hold Zaroxolyn so in view of hematuria. We'll consult cardiology 3. Diabetes type 2-we'll restart home medications, monitor Accu-Cheks. Consistent carb cardiac diet. Insulin sliding scale 4. Benign hypertension-controlled, restart home medications 5. Chronic respiratory failure due to COPD-stable, continue home oxygen. When necessary breathing treatments 5. Possible pancreatic mass - will get MRI for further evaluation. We'll consult gastroenterology 6. DVT prophylaxis-SCDs, chemical prophylaxis contraindicated in view of hematuria
--- NOTE | 2016-05-09 18:16 | Admit Criteria Form ---
Admission Criteria Documentation: URINARY COMPLICATIONS Clinical Indications for Inpatient Care (Place 'X' for any and all applicable criteria): Ongoing inpatient care may be indicated for urinary complications with ANY ONE of the following: [x]I. Urinary tract infection requiring inpatient care as indicated by ANY ONE of the following(8)(19)(20): [ ]a) Severe symptoms (eg, high fever, severe pain) [ ]b) Vomiting or dehydration requiring ongoing inpatient care [X]c) IV antibiotic needs that cannot be managed at lower level of care [ ]d) Hemodynamic instability [X]e) Obstruction of collecting system by stone or tumor [ ]II. Urinary retention requiring drainage or surgery (3)(4)(5)(17)(18) [ ]III. Renal failure (Use Renal Failure Criteria for further information.) [ ]IV. Oliguria(30) [ ]V. Post obstructive diuresis requiring close monitoring of urine output and intravenous compensation for excessive fluid losses(33) Extended stay beyond goal length of stay for primary condition may be needed until ALL of the following are present(3)(4)(5)(8): [ ]a) Renal function (creatinine) at baseline, or daily decreases in creatinine consistent with renal function return [ ]b) Voiding adequately or with urinary catheter or percutaneous suprapubic tube and management regimen in place that is performable at lower level of care. [ ]c) Urine output adequate [ ]d) Fever absent or resolving [ ]e) Infection absent or treatable at next level of care The original [employer] content created by [employer] has been revised. The portions of the content which have been revised are identified through the use of italic text or in bold, and [facility] has neither reviewed nor approved the modified material. All other unmodified content is copyright [employer] Please see references footnoted in the original [employer] edition 2016 Admission Criteria Met: Yes
--- NOTE | 2016-05-09 18:19 | Gastroenterology Consultation ---
History of Present Illness - Reason for Consult Consult date: 05/09/[address] Requesting physician: BALBIR TUCKER - History of Present Illness Asked to see this 71yo man for evaluation of a pancreatic mass seen on CT scan. He is on Xarelto for AFib and is admitted for evaluation of hematuria. CT A/ P was done for evaluation, but identified a mass in the right hemiabdomen, in the area of the pancreatic head. This measures 6.8 x 6.1cm. Review of the report shows that this was compared to a study in 2012, but I cannot access the report; however, based on the report, it appears that a mass was present at that time as well, just smaller in size. Brent denies any abdominal pain, nausea/vomiting, feeling full easily, weight loss, yellowing of skin/eyes, light -colored stools. He has hematuria so he cannot answer if his urine has been darker. No weight loss, fevers/chills/night sweats. No CP/SOB. Past History Past Medical History: COPD (on home oxygen), diabetes, hypertension, other ( atrial fib ) Past Surgical History: Other (knee,incarcirated hernia; ) Social history: full code. denies: smoking (stopped years ago), alcohol abuse, prescription drug abuse, IV drug use Family history: hypertension Medications and Allergies Allergies Allergy/AdvReac Type Severity Reaction Status Date / Time No Known Allergies Allergy Unverified 03/31/14 09:06 Home Medications Medication Instructions Recorded Confirmed Last Taken Type ALBUTEROL Inhaler [ProAir HFA 2 puff IH QID PRN 03/31/14 05/09/16 Unknown History Inhaler] Albuterol Sulfate [Albuterol 0.63% 0.63 mg IH BID PRN 03/31/14 05/09/16 Unknown History NEBS] Tiotropium [Spiriva] 18 mcg IH QDAY 03/31/14 05/09/16 Unknown History glipiZIDE [glipiZIDE ER] 5 mg PO QAM 03/31/14 05/09/16 Unknown History metFORMIN [Glucophage] 1,000 mg PO BID 03/31/14 05/09/16 Unknown History Diltiazem Cd [Cardizem CD] 180 mg PO QDAY #30 capsule 04/01/14 05/09/16 Unknown Rx Rivaroxaban [Xarelto] 20 mg PO QDAY #30 tablet 04/01/14 05/09/16 Unknown Rx AtorvaSTATin [Lipitor] 40 mg PO DAILY 05/09/16 05/09/16 Unknown History Azelastine HCl [Astepro] 205.5 mcg NS DAILY 05/09/16 05/09/16 Unknown History Fluticasone Propionate [Flovent 2 puff IH QPM PRN 05/09/16 05/09/16 Unknown History Diskus] Formoterol Fumarate [Foradil] 24 mcg IH BID 05/09/16 05/09/16 Unknown History Loratadine 10 mg PO DAILY 05/09/16 05/09/16 Unknown History Spironolact/Hydrochlorothiazid 1 each PO QDAY 05/09/16 05/09/16 Unknown History [Spironolactone-Hctz 25-25 Tab] Zolpidem Tartrate [Edluar SUBL] 10 mg SL QHS PRN 05/09/16 05/09/16 Unknown History Review of Systems - Review of Systems All systems: negative (hematuria) Exam - Constitutional Vital Signs: Temp Pulse Resp BP Pulse Ox 98.5 F 85 16 111/66 97 05/09/16 11:55 05/09/16 16:49 05/09/16 16:57 05/09/16 16:49 05/09/16 16:57 General appearance: no acute distress - Neck Neck: supple - Respiratory Respiratory: bilateral: CTA - Cardiovascular Rhythm: regular Heart Sounds: Present: S1 & S2 Extremities: No edema - Gastrointestinal General gastrointestinal: Present: soft, non-tender, normal bowel sounds - Neurologic Neurological: alert and oriented x3 - Psychiatric Psychiatric: appropriate mood/affect - Labs CBC & Chem 7: 05/09/16 13:37 05/09/16 13:37 - Imaging CT Scan: report reviewed Assessment and Plan 71yo man admitted for evaluation of hematuria, found to have a 6.8 x 6.1cm mass in the right alexandr-abdomen, in the area of the pancreatic head. This appears to be slow-growing and could represent pancreatic cystic neoplasm vs adenocarcinoma vs GIST tumor vs sarcoma vs other. Rec: 1) MRI of abdomen already ordered by primary team 2) Check LFT's 3) Check CA 19-9 Further recommendations to follow above results. Thank you for allowing me to participate in the care of your patient.
[2016-05-09 18:32] LABS: Alanine Aminotransferase 30 units/L (7-56); Albumin 3.7 g/dL (3.9-5); Albumin/Globulin Ratio 1.2 %; Alkaline Phosphatase 56 units/L (35-129); Amylase 81 units/L (27-131); Bilirubin,Total 0.3 mg/dL (0.1-1.2); Lipase 62 units/L (13-60); Total Protein 6.8 g/dL (6.3-8.2)
[2016-05-09 18:33] LABS: Bilirubin,Direct < 0.2 mg/dL (0-0.2); Bilirubin,Indirect 0.1 mg/dL
[2016-05-09] MEDS ORDERED: NON-FORMULARY (Zolpidem Tartrate [Edluar Subl] 10 MG) SL PRN (18:51)
[2016-05-09] MEDS ORDERED: REGLAN IV PRN (18:51)
[2016-05-09] MEDS ORDERED: TYLENOL PO PRN (18:51)
[2016-05-09] MEDS ORDERED: FLUTICASONE PROPIONATE IH PRN (18:51)
[2016-05-09] MEDS ORDERED: NOVOLOG SUB-Q ONE (19:00)
[2016-05-09] MEDS ORDERED: AMBIEN PO PRN (19:06)
[2016-05-09] MEDS: PROVENTIL IH PRN (20:26)
[2016-05-09] MEDS: PULMICORT IH SCH (20:26)
[2016-05-09] MEDS: NACL 0.9% 1000 ML 1,000 ML IV SCH (21:07)
[2016-05-09] MEDS ORDERED: FORMOTEROL FUMARATE IH SCH (22:00)
[2016-05-10 06:13] LABS: Basophils % (Auto) 0.4 % (0.0-1.8); Eosinophils % (Auto) 2.1 % (0.0-4.3); Hematocrit 39.3 % (35.5-45.6); Hemoglobin 12.7 gm/dl (11.8-15.2); Mean Corpuscular HGB Conc 32 % (32-34); Mean Corpuscular Hemoglobin 28 pg (28-32); Mean Corpuscular Volume 88 fl (84-94); Platelet Count 355 K/mm3 (140-440); Red Blood Count 4.48 M/mm3 (3.65-5.03); Red Cell Distribution Width 13.8 % (13.2-15.2); White Blood Count 12.7 K/mm3 (4.5-11.0)
[2016-05-10] MEDS: NACL 0.9% 1000 ML 1,000 ML IV SCH ×2 (06:21→19:29)
[2016-05-10 06:37] LABS: Alanine Aminotransferase 24 units/L (7-56); Albumin 3.4 g/dL (3.9-5); Albumin/Globulin Ratio 1.4 %; Alkaline Phosphatase 50 units/L (35-129); Anion Gap 10 mmol/L; Bilirubin,Total 0.2 mg/dL (0.1-1.2); Blood Urea Nitrogen 8 mg/dL (9-20); Calcium 9.1 mg/dL (8.4-10.2); Carbon Dioxide 39 mmol/L (22-30); Chloride 88.7 mmol/L (98-107); Glucose 110 mg/dL (75-100); Potassium 4.3 mmol/L (3.6-5.0); Sodium 133 mmol/L (137-145); Total Protein 5.9 g/dL (6.3-8.2)
[2016-05-10] MEDS: PROVENTIL IH PRN (08:24)
[2016-05-10] MEDS: PULMICORT IH SCH ×2 (08:24→20:00)
[2016-05-10] MEDS ORDERED: HYDROCHLOROTHIAZID PO SCH (10:00)
[2016-05-10] MEDS ORDERED: SPIRONOLACT PO SCH (10:00)
[2016-05-10] MEDS: HCTZ PO SCH (10:07)
[2016-05-10] MEDS: ALDACTONE PO SCH (10:07)
[2016-05-10] MEDS: CARDIZEM CD PO SCH (10:08)
[2016-05-10] MEDS: GLUCOTROL XL PO SCH (10:08)
[2016-05-10] MEDS: SPIRIVA IH SCH (11:35)
--- NOTE | 2016-05-10 13:13 | Consultation ---
History of Present Illness Consult date: 05/10/16 Consult reason: atrial fibrillation, other (oral anticoagulation) History of present illness: The patient is a 71-year-old man, on Xarelto for despite atrial flutter and fibrillation. Presented to the hospital at this time with complaints of hematuria. No cardiac complaints. Past History Past Medical History: atrial fib, COPD (on home oxygen), diabetes, hypertension , other (atrial fib ) Past Surgical History: Other (knee,incarcirated hernia; ) Social history: full code. denies: smoking (stopped years ago), alcohol abuse, prescription drug abuse, IV drug use Family history: hypertension Medications and Allergies Allergies Allergy/AdvReac Type Severity Reaction Status Date / Time No Known Allergies Allergy Unverified 03/31/14 09:06 Home Medications Medication Instructions Recorded Confirmed Last Taken Type ALBUTEROL Inhaler [ProAir HFA 2 puff IH QID PRN 03/31/14 05/09/16 Unknown History Inhaler] Albuterol Sulfate [Albuterol 0.63% 0.63 mg IH BID PRN 03/31/14 05/09/16 Unknown History NEBS] Tiotropium [Spiriva] 18 mcg IH QDAY 03/31/14 05/09/16 Unknown History glipiZIDE [glipiZIDE ER] 5 mg PO QAM 03/31/14 05/09/16 Unknown History metFORMIN [Glucophage] 1,000 mg PO BID 03/31/14 05/09/16 Unknown History Diltiazem Cd [Cardizem CD] 180 mg PO QDAY #30 capsule 04/01/14 05/09/16 Unknown Rx Rivaroxaban [Xarelto] 20 mg PO QDAY #30 tablet 04/01/14 05/09/16 Unknown Rx AtorvaSTATin [Lipitor] 40 mg PO DAILY 05/09/16 05/09/16 Unknown History Azelastine HCl [Astepro] 205.5 mcg NS DAILY 05/09/16 05/09/16 Unknown History Fluticasone Propionate [Flovent 2 puff IH QPM PRN 05/09/16 05/09/16 Unknown History Diskus] Formoterol Fumarate [Foradil] 24 mcg IH BID 05/09/16 05/09/16 Unknown History Loratadine 10 mg PO DAILY 05/09/16 05/09/16 Unknown History Spironolact/Hydrochlorothiazid 1 each PO QDAY 05/09/16 05/09/16 Unknown History [Spironolactone-Hctz 25-25 Tab] Zolpidem Tartrate [Edluar SUBL] 10 mg SL QHS PRN 05/09/16 05/09/16 Unknown History Active Meds: Active Medications Acetaminophen (Tylenol) 650 mg PO Q4H PRN PRN Reason: Pain MILD(1-3)/Fever >100.5/[place] Albuterol (Proventil) 2.5 mg IH Q4HRT PRN PRN Reason: Shortness Of Breath Last Admin: 05/10/16 08:24 Dose: 2.5 mg Atorvastatin Calcium (Lipitor) 40 mg PO DAILY [facility] Last Admin: 05/10/16 10:08 Dose: 40 mg Budesonide (Pulmicort) 0.5 mg IH Q12HRT [facility] Last Admin: 05/10/16 08:24 Dose: 0.5 mg Diltiazem HCl (Cardizem Cd) 180 mg PO QDAY [facility] Last Admin: 05/10/16 10:08 Dose: 180 mg Glipizide (Glucotrol Xl) 5 mg PO QAMDIAB [facility] Last Admin: 05/10/16 10:08 Dose: 5 mg Hydrochlorothiazide (Hctz) 25 mg PO QDAY [facility] Last Admin: 05/10/16 10:07 Dose: 25 mg Sodium Chloride (Nacl 0.9% 1000 Ml) 1,000 mls @ 100 mls/hr IV DIRECT [facility] Last Admin: 05/10/16 06:21 Dose: 100 mls/hr Metoclopramide HCl (Reglan) 10 mg IV Q6H PRN PRN Reason: Nausea And Vomiting Spironolactone (Aldactone) 25 mg PO QDAY [facility] Last Admin: 05/10/16 10:07 Dose: 25 mg Tiotropium [place] (Spiriva) 1 puff IH QDAY [facility] Last Admin: 05/10/16 11:35 Dose: 1 puff Zolpidem Tartrate (Ambien) 10 mg PO QHS PRN PRN Reason: Sleep Review of Systems Cardiovascular: palpitations, no chest pain, no orthopnea, no rapid/irregular heart beat, no edema, no syncope, no lightheadedness, no shortness of breath Physical Examination Vital Signs Temp Pulse Resp BP Pulse Ox 98.5 F 80 24 118/58 100 05/09/16 11:55 05/09/16 11:55 05/09/16 11:55 05/09/16 11:55 05/09/16 11:55 General appearance: no acute distress HEENT: Positive: PERRL Neck: Positive: neck supple Cardiac: Positive: Reg Rate and Rhythm Lungs: Positive: Decreased Breath Sounds Neuro: Positive: Grossly Intact Abdomen: Positive: Soft Male genitourinary: Positive: deferred Skin: Positive: Clear Extremities: Absent: edema Results 05/10/16 04:47 05/10/16 04:47 Cardiac Enzymes 05/10/16 Range/Units 04:47 AST 15 (5-40) units/L CBC 05/10/16 Range/Units 04:47 WBC 12.7 H (4.5-11.0) K/mm3 RBC 4.48 (3.65-5.03) M/mm3 Hgb 12.7 (11.8-15.2) gm/dl Hct 39.3 (35.5-45.6) % Plt Count 355 (140-440) K/mm3 Lymph # 2.6 (1.2-5.4) K/mm3 [place] # 0.9 H (0.0-0.8) K/mm3 Eos # 0.3 (0.0-0.4) K/mm3 Baso # 0.0 (0.0-0.1) K/mm3 Comprehensive Metabolic Panel 05/10/16 Range/Units 04:47 Sodium 133 L (137-145) mmol/L Potassium 4.3 (3.6-5.0) mmol/L Chloride 88.7 L (98-107) mmol/L Carbon Dioxide 39 H (22-30) mmol/L BUN 8 L (9-20) mg/dL Creatinine 0.5 L (0.8-1.5) mg/dL Glucose 110 H (75-100) mg/dL Calcium 9.1 (8.4-10.2) mg/dL AST 15 (5-40) units/L ALT 24 (7-56) units/L Alkaline Phosphatase 50 (35-129) units/L Total Protein 5.9 L (6.3-8.2) g/dL Albumin 3.4 L (3.9-5) g/dL Assessment and Plan - Patient Problems (1) On continuous oral anticoagulation Current Visit: Yes Status: Acute Plan to address problem: If the patient has hematuria, it will be prudent to hold Xarelto, pending urology evaluation of the hematuria. Otherwise, cardiac status is stable, we' ll follow with you as needed.
[2016-05-11] MEDS: NACL 0.9% 1000 ML 1,000 ML IV SCH (04:58)
--- NOTE | 2016-05-11 07:39 | Progress Note ---
Assessment and Plan - Patient Problems (1) UTI (urinary tract infection) Current Visit: Yes Status: Acute Qualifiers: Urinary tract infection type: site unspecified Hematuria presence: with hematuria Qualified Code(s): N39.0 - Urinary tract infection, site not specified; R31.9 - Hematuria, unspecified Plan to address problem: IV abx, IVF, supportive care. (2) Sepsis Current Visit: Yes Status: Acute Plan to address problem: SSepsis protocol:IV abx, IVF< supportive care, adjust abx based on culture results. (3) Atrial fibrillation Current Visit: No Status: Acute Plan to address problem: rate controlled, continue anticoagulation (4) COPD (chronic obstructive pulmonary disease) Current Visit: No Status: Chronic Plan to address problem: supplemental oxygen, nebs, pulmonary toilet, NIPPV as clinically indicated. (5) Diabetes mellitus Current Visit: No Status: Chronic Plan to address problem: ADA diet, insulin, accu check (6) Hematuria Current Visit: Yes Status: Acute Plan to address problem: suspect secondary to anticoagulation, continue current care, outpatient urology f/u for cystoscopy (7) Pancreatic mass Current Visit: Yes Status: Acute Plan to address problem: GI consulted, f/u MRI abdomen, (8) DVT prophylaxis Current Visit: Yes Status: Acute History Interval history: Pt resting in bed, No reported nursing events overnight. Pt denies pain, NO BRBPR overnight. Pt at bedside. Discussed care plan with patient and his . F/U MRI results. Hospitalist Physical - Constitutional Vitals: Temp Pulse Resp BP Pulse Ox 98.4 F 89 18 111/81 99 05/10/16 23:14 05/10/16 23:14 05/10/16 23:14 05/10/16 23:14 05/10/16 23:14 General appearance: Present: no acute distress, obese - EENT Eyes: Present: PERRL, EOM intact ENT: hearing intact - Neck Neck: Present: supple - Respiratory Respiratory: bilateral: diminished - Cardiovascular Rhythm: regular Heart Sounds: Present: S1 & S2 - Extremities Extremities: no ischemia Extremity abnormal: edema Peripheral Pulses: within normal limits - Abdominal General gastrointestinal: soft, non-tender, non-distended - Integumentary Integumentary: Present: clear, dry - Psychiatric Psychiatric: appropriate mood/affect, cooperative - Neurologic Neurologic: CNII-XII intact Results - Labs CBC & Chem 7: 05/10/16 04:47 05/10/16 04:47 Labs: Laboratory Last Values WBC 12.7 K/mm3 (4.5-11.0) H 05/10/16 04:47 RBC 4.48 M/mm3 (3.65-5.03) 05/10/16 04:47 Hgb 12.7 gm/dl (11.8-15.2) 05/10/16 04:47 Hct 39.3 % (35.5-45.6) 05/10/16 04:47 MCV 88 fl (84-94) 05/10/16 04:47 MCH 28 pg (28-32) 05/10/16 04:47 MCHC 32 % (32-34) 05/10/16 04:47 RDW 13.8 % (13.2-15.2) 05/10/16 04:47 Plt Count 355 K/mm3 (140-440) 05/10/16 04:47 Lymph % (Auto) 20.8 % (13.4-35.0) 05/10/16 04:47 [place] % (Auto) 7.1 % (0.0-7.3) 05/10/16 04:47 Eos % (Auto) 2.1 % (0.0-4.3) 05/10/16 04:47 Baso % (Auto) 0.4 % (0.0-1.8) 05/10/16 04:47 Lymph # 2.6 K/mm3 (1.2-5.4) 05/10/16 04:47 [place] # 0.9 K/mm3 (0.0-0.8) H 05/10/16 04:47 Eos # 0.3 K/mm3 (0.0-0.4) 05/10/16 04:47 Baso # 0.0 K/mm3 (0.0-0.1) 05/10/16 04:47 Seg Neutrophils % 69.6 % (40.0-70.0) 05/10/16 04:47 Seg Neutrophils # 8.9 K/mm3 (1.8-7.7) H 05/10/16 04:47 PT 13.0 Sec. (12.2-14.9) 05/09/16 13:37 INR 0.99 (0.87-1.13) 05/09/16 13:37 APTT 28.4 Sec. (24.2-36.6) 05/09/16 13:37 Sodium 133 mmol/L (137-145) L 05/10/16 04:47 Potassium 4.3 mmol/L (3.6-5.0) 05/10/16 04:47 Chloride 88.7 mmol/L (98-107) L 05/10/16 04:47 Carbon Dioxide 39 mmol/L (22-30) H 05/10/16 04:47 Anion Gap 10 mmol/L 05/10/16 04:47 BUN 8 mg/dL (9-20) L 05/10/16 04:47 Creatinine 0.5 mg/dL (0.8-1.5) L 05/10/16 04:47 Estimated GFR > 60 ml/min 05/10/16 04:47 BUN/Creatinine Ratio 16.00 % 05/10/16 04:47 Glucose 110 mg/dL (75-100) H 05/10/16 04:47 POC Glucose 197 (70-105) H 05/10/16 21:27 Calcium 9.1 mg/dL (8.4-10.2) 05/10/16 04:47 Total Bilirubin 0.2 mg/dL (0.1-1.2) 05/10/16 04:47 Direct Bilirubin < 0.2 mg/dL (0-0.2) 05/09/16 13:37 Indirect Bilirubin 0.1 mg/dL 05/09/16 13:37 AST 15 units/L (5-40) 05/10/16 04:47 ALT 24 units/L (7-56) 05/10/16 04:47 Alkaline Phosphatase 50 units/L (35-129) 05/10/16 04:47 Total Creatine Kinase 42 units/L (55-170) L 05/09/16 13:37 CK-MB (CK-2) 4.5 ng/mL (0.0-4.0) H 05/09/16 13:37 CK-MB (CK-2) Rel Index 10.7 (0-4) H 05/09/16 13:37 Troponin T < 0.010 ng/mL (0.00-0.029) 05/09/16 13:37 NT-Pro-B Natriuret Pep 89.36 pg/mL (0-900) 05/09/16 13:37 Total Protein 5.9 g/dL (6.3-8.2) L 05/10/16 04:47 Albumin 3.4 g/dL (3.9-5) L 05/10/16 04:47 Albumin/Globulin Ratio 1.4 % 05/10/16 04:47 Amylase 81 units/L (27-131) 05/09/16 13:37 Lipase 62 units/L (13-60) H 05/09/16 13:37 Urine Color Red (Yellow) 05/09/16 14:40 Urine Turbidity Cloudy (Clear) 05/09/16 14:40 Urine pH 6.0 (5.0-7.0) 05/09/16 14:40 Ur Specific [place] 1.015 (1.003-1.030) 05/09/16 14:40 Urine Protein 100 mg/dl mg/dL (Negative) 05/09/16 14:40 Urine Glucose (UA) 150 mg/dL (Negative) 05/09/16 14:40 Urine Ketones Neg mg/dL (Negative) 05/09/16 14:40 Urine Blood Lg (Negative) 05/09/16 14:40 Urine Nitrite Neg (Negative) 05/09/16 14:40 Urine Bilirubin Neg (Negative) 05/09/16 14:40 Urine Urobilinogen < 2.0 mg/dL (<2.0) 05/09/16 14:40 Ur Leukocyte Esterase Tr (Negative) 05/09/16 14:40 Urine WBC (Auto) > 182.0 /HPF (0.0-6.0) H 05/09/16 14:40 Urine RBC (Auto) > 182.0 /HPF (0.0-6.0) 05/09/16 14:40 U Epithel Cells (Auto) 2.0 /HPF (0-13.0) 05/09/16 14:40 Urine Mucus 1+ /HPF 05/09/16 14:40 Blood Type A NEGATIVE 05/09/16 13:37 Antibody Screen Negative 05/09/16 13:37
[2016-05-11] MEDS: PULMICORT IH SCH ×2 (09:38→21:59)
[2016-05-11] MEDS: GLUCOTROL XL PO SCH (09:49)
[2016-05-11] MEDS: HCTZ PO SCH ×2 (09:49→09:56)
[2016-05-11] MEDS: CARDIZEM CD PO SCH (09:54)
--- NOTE | 2016-05-11 10:33 | Gastroenterology Progress Note ---
Assessment and Plan right hemiabdomen mass - slow increase in size from previous imaging, appearing to arise from HOP vs duodenum. awaiting MRCP results. Further recommendations following MRCP findings. Will need close follow-up to plan appropriate steps following imaging report. Subjective Date of service: 05/11/16 Principal diagnosis: pancreatic head mass, hematuria Interval history: pt receiving breathing treatment this morning, awake/alert and denies new complaints. denies abd pain, n/v, jaundice, GI bleeding. Objective - Exam Narrative Exam: Gen: NAD, obese male, receiving breathing treatment Head: nc/at Lungs: non labored, coarse bs Abd: soft, nt, nd, +bs Ext: no edema - Constitutional Vitals: Temp Pulse Resp BP Pulse Ox 97.4 F L 73 18 129/57 94 05/11/16 07:30 05/11/16 09:55 05/11/16 09:55 05/11/16 07:30 05/11/16 07:30 - Labs CBC & Chem 7: 05/10/16 04:47 05/10/16 04:47 Labs: Laboratory Results - last 24 hr 05/10/16 05/10/16 15:25 21:27 POC Glucose 164 H 197 H - Imaging CT scan: report reviewed
--- NOTE | 2016-05-11 10:50 | Magnetic Resonance Report ---
FINAL REPORT PROCEDURE: MR ABDOMEN MRCP TECHNIQUE: Axial 2D [place] fat sat and dual echo T1 and coronal T1 fat saturated images of the abdomen were performed. MRCP was also acquired. HISTORY: ?pancreatic mass COMPARISON: Noncontrast CT of the abdomen and pelvis 05/09/2016 FINDINGS: The study is limited due to motion artifact related to patient breathing. Coil artifact due to patient body habitus is also noted. There is however again identified a complex mass with partial internal calcifications of the right alexandr abdomen. This is intimately associated with duodenum and measures 7 x 6.1 x 6.6 centimeters by my measurement. No gross focal abnormality is seen of the liver, spleen, pancreas, or gallbladder. There is no gross adrenal abnormality. Bilateral renal cysts are again noted the largest of which is of the lower pole of the left kidney 6.3 x 6 centimeters. Likely smaller complex cyst of the lower pole of the left kidney 1.8 x 2.3 centimeters is again seen. There is no abdominal aortic aneurysm. There is no ascites. There is no bowel obstruction. Colonic diverticulosis is better seen on CT. No infiltrating lesion of marrow or acute fracture is present. There is no intra or extrahepatic biliary ductal or main pancreatic ductal dilatation. No mucosal abnormality or intramural filling defect of the biliary ductal system was seen. IMPRESSION: Study limited due to motion artifact as well as coil artifact related to patient body habitus. Re-identified mass 7 x 6.1 x 6.6 centimeters by my measurement of the right alexandr abdomen. This appears to arise from the 2nd portion of the duodenal. There is no evident involvement of the adjacent pancreas. Primary differential considerations include leiomyoma, GI stromal tumor or less likely neural tumor. Bilateral renal cysts. Likely complex cyst of the lower pole of the left kidney. Solid lesion is not excluded. Consider correlation with ultrasound. Normal MRCP.
--- NOTE | 2016-05-11 12:49 | Progress Note ---
Assessment and Plan - Patient Problems (1) On continuous oral anticoagulation Current Visit: Yes Status: Acute Plan to address problem: The indication for Xarelto was a single episode of atrial fibrillation 2 years ago, that has not recurred. We have recommended temporary stoppage of Xarelto at this time in the setting of gross hematuria. Once the urologist have seen him and evaluated his hematuria, oral anticoagulation can be resumed in the future after okay by urology. Subjective Date of service: 05/11/16 Principal diagnosis: pancreatic head mass, hematuria Interval history: The patient is comfortable, no chest pain. He does have mild shortness of breath at baseline due to his severe incapacitating COPD. The indication for Xarelto was a single episode of atrial fibrillation 2 years ago, that has not recurred. We have recommended temporary stoppage of Xarelto at this time in the setting of gross hematuria. Once the urologist have seen him and evaluated his hematuria, oral anticoagulation can be resumed in the future after okay by urology. Objective Vital Signs Temp Pulse Pulse Pulse Pulse Resp Resp 05/11/16 09:55 73 18 05/11/16 09:35 69 18 05/11/16 07:30 97.4 F L 80 22 05/10/16 23:14 98.4 F 89 18 05/10/16 22:00 98 H 22 05/10/16 20:16 86 20 05/10/16 20:00 85 20 05/10/16 16:00 98.1 F 78 18 BP Pulse Ox 05/11/16 09:55 05/11/16 09:35 05/11/16 07:30 129/57 94 05/10/16 23:14 111/81 99 05/10/16 22:00 98 05/10/16 20:16 05/10/16 20:00 05/10/16 16:00 142/62 98 - Physical Examination General: Other (mild shortness of breath) HEENT: Positive: PERRL Neck: Positive: neck supple Cardiac: Positive: Reg Rate and Rhythm Lungs: Positive: Decreased Breath Sounds, Wheezes Neuro: Positive: Grossly Intact Abdomen: Positive: Soft Skin: Positive: Clear Extremities: Absent: edema
[2016-05-11] MEDS: SPIRIVA IH SCH (16:17)
[2016-05-11] MEDS: ALDACTONE PO SCH (17:16)
--- NOTE | 2016-05-11 18:43 | Progress Note ---
Assessment and Plan - Patient Problems (1) UTI (urinary tract infection) Current Visit: Yes Status: Acute Qualifiers: Urinary tract infection type: site unspecified Hematuria presence: with hematuria Qualified Code(s): N39.0 - Urinary tract infection, site not specified; R31.9 - Hematuria, unspecified Plan to address problem: IV abx, IVF, supportive care. (2) Sepsis Current Visit: Yes Status: Acute Plan to address problem: SSepsis protocol:IV abx, IVF< supportive care, adjust abx based on culture results. (3) Atrial fibrillation Current Visit: No Status: Acute Plan to address problem: rate controlled, continue anticoagulation (4) COPD (chronic obstructive pulmonary disease) Current Visit: No Status: Chronic Plan to address problem: supplemental oxygen, nebs, pulmonary toilet, NIPPV as clinically indicated. (5) Diabetes mellitus Current Visit: No Status: Chronic Plan to address problem: ADA diet, insulin, accu check (6) Hematuria Current Visit: Yes Status: Acute Plan to address problem: suspect secondary to anticoagulation, continue current care, outpatient urology f/u for cystoscopy (7) Pancreatic mass Current Visit: Yes Status: Acute Plan to address problem: GI consulted, f/u MRI abdomen, pending mrcp (8) DVT prophylaxis Current Visit: Yes Status: Acute History Interval history: Pt resting in bed, No reported nursing events overnight. Pt denies pain, NO BRBPR overnight. Pt at bedside. Discussed care plan with patient and his . Pending MRCP. Hospitalist Physical - Constitutional Vitals: Temp Pulse Resp BP Pulse Ox 98.4 F 83 18 120/63 93 05/11/16 16:30 05/11/16 16:30 05/11/16 16:30 05/11/16 16:30 05/11/16 16:30 General appearance: Present: no acute distress, obese - EENT Eyes: Present: PERRL, EOM intact ENT: hearing intact - Neck Neck: Present: supple - Respiratory Respiratory effort: normal Respiratory: bilateral: CTA - Cardiovascular Rhythm: irregularly irregular - Extremities Extremities: no ischemia Peripheral Pulses: within normal limits - Abdominal General gastrointestinal: soft, non-tender, non-distended - Integumentary Integumentary: Present: clear, dry - Psychiatric Psychiatric: appropriate mood/affect, cooperative - Neurologic Neurologic: CNII-XII intact Results - Labs CBC & Chem 7: 05/10/16 04:47 05/10/16 04:47 Labs: Laboratory Last Values WBC 12.7 K/mm3 (4.5-11.0) H 05/10/16 04:47 RBC 4.48 M/mm3 (3.65-5.03) 05/10/16 04:47 Hgb 12.7 gm/dl (11.8-15.2) 05/10/16 04:47 Hct 39.3 % (35.5-45.6) 05/10/16 04:47 MCV 88 fl (84-94) 05/10/16 04:47 MCH 28 pg (28-32) 05/10/16 04:47 MCHC 32 % (32-34) 05/10/16 04:47 RDW 13.8 % (13.2-15.2) 05/10/16 04:47 Plt Count 355 K/mm3 (140-440) 05/10/16 04:47 Lymph % (Auto) 20.8 % (13.4-35.0) 05/10/16 04:47 [place] % (Auto) 7.1 % (0.0-7.3) 05/10/16 04:47 Eos % (Auto) 2.1 % (0.0-4.3) 05/10/16 04:47 Baso % (Auto) 0.4 % (0.0-1.8) 05/10/16 04:47 Lymph # 2.6 K/mm3 (1.2-5.4) 05/10/16 04:47 [place] # 0.9 K/mm3 (0.0-0.8) H 05/10/16 04:47 Eos # 0.3 K/mm3 (0.0-0.4) 05/10/16 04:47 Baso # 0.0 K/mm3 (0.0-0.1) 05/10/16 04:47 Seg Neutrophils % 69.6 % (40.0-70.0) 05/10/16 04:47 Seg Neutrophils # 8.9 K/mm3 (1.8-7.7) H 05/10/16 04:47 PT 13.0 Sec. (12.2-14.9) 05/09/16 13:37 INR 0.99 (0.87-1.13) 05/09/16 13:37 APTT 28.4 Sec. (24.2-36.6) 05/09/16 13:37 Sodium 133 mmol/L (137-145) L 05/10/16 04:47 Potassium 4.3 mmol/L (3.6-5.0) 05/10/16 04:47 Chloride 88.7 mmol/L (98-107) L 05/10/16 04:47 Carbon Dioxide 39 mmol/L (22-30) H 05/10/16 04:47 Anion Gap 10 mmol/L 05/10/16 04:47 BUN 8 mg/dL (9-20) L 05/10/16 04:47 Creatinine 0.5 mg/dL (0.8-1.5) L 05/10/16 04:47 Estimated GFR > 60 ml/min 05/10/16 04:47 BUN/Creatinine Ratio 16.00 % 05/10/16 04:47 Glucose 110 mg/dL (75-100) H 05/10/16 04:47 POC Glucose 197 (70-105) H 05/10/16 21:27 Calcium 9.1 mg/dL (8.4-10.2) 05/10/16 04:47 Total Bilirubin 0.2 mg/dL (0.1-1.2) 05/10/16 04:47 Direct Bilirubin < 0.2 mg/dL (0-0.2) 05/09/16 13:37 Indirect Bilirubin 0.1 mg/dL 05/09/16 13:37 AST 15 units/L (5-40) 05/10/16 04:47 ALT 24 units/L (7-56) 05/10/16 04:47 Alkaline Phosphatase 50 units/L (35-129) 05/10/16 04:47 Total Creatine Kinase 42 units/L (55-170) L 05/09/16 13:37 CK-MB (CK-2) 4.5 ng/mL (0.0-4.0) H 05/09/16 13:37 CK-MB (CK-2) Rel Index 10.7 (0-4) H 05/09/16 13:37 Troponin T < 0.010 ng/mL (0.00-0.029) 05/09/16 13:37 NT-Pro-B Natriuret Pep 89.36 pg/mL (0-900) 05/09/16 13:37 Total Protein 5.9 g/dL (6.3-8.2) L 05/10/16 04:47 Albumin 3.4 g/dL (3.9-5) L 05/10/16 04:47 Albumin/Globulin Ratio 1.4 % 05/10/16 04:47 Amylase 81 units/L (27-131) 05/09/16 13:37 Lipase 62 units/L (13-60) H 05/09/16 13:37 Urine Color Red (Yellow) 05/09/16 14:40 Urine Turbidity Cloudy (Clear) 05/09/16 14:40 Urine pH 6.0 (5.0-7.0) 05/09/16 14:40 Ur Specific [place] 1.015 (1.003-1.030) 05/09/16 14:40 Urine Protein 100 mg/dl mg/dL (Negative) 05/09/16 14:40 Urine Glucose (UA) 150 mg/dL (Negative) 05/09/16 14:40 Urine Ketones Neg mg/dL (Negative) 05/09/16 14:40 Urine Blood Lg (Negative) 05/09/16 14:40 Urine Nitrite Neg (Negative) 05/09/16 14:40 Urine Bilirubin Neg (Negative) 05/09/16 14:40 Urine Urobilinogen < 2.0 mg/dL (<2.0) 05/09/16 14:40 Ur Leukocyte Esterase Tr (Negative) 05/09/16 14:40 Urine WBC (Auto) > 182.0 /HPF (0.0-6.0) H 05/09/16 14:40 Urine RBC (Auto) > 182.0 /HPF (0.0-6.0) 05/09/16 14:40 U Epithel Cells (Auto) 2.0 /HPF (0-13.0) 05/09/16 14:40 Urine Mucus 1+ /HPF 05/09/16 14:40 Blood Type A NEGATIVE 05/09/16 13:37 Antibody Screen Negative 05/09/16 13:37
[2016-05-12] MEDS: NACL 0.9% 1000 ML 1,000 ML IV SCH ×2 (00:54→17:04)
[2016-05-12] MEDS: PULMICORT IH SCH ×2 (08:01→20:05)
[2016-05-12] MEDS: GLUCOTROL XL PO SCH (08:58)
--- NOTE | 2016-05-12 10:21 | Progress Note ---
Assessment and Plan Hematuria Atrial fibrillation, chronic xarelto discontinued COPD on home oxygen Recommended Temporary stoppage of Xarelto at this time in the setting of gross hematuria. Once the urologist have seen him and evaluated his hematuria, oral anticoagulation can be resumed in the future after okay by urology. Subjective Date of service: 05/12/16 Principal diagnosis: pancreatic head mass, hematuria Interval history: Patient has no cardiac complaints. Objective Vital Signs Temp Pulse Pulse Pulse Pulse Resp Resp 05/12/16 08:02 76 18 05/12/16 08:01 75 18 05/12/16 08:00 97.5 F L 82 20 05/11/16 23:53 98.2 F 86 18 05/11/16 22:11 85 22 05/11/16 21:59 79 19 05/11/16 16:30 98.4 F 83 18 BP Pulse Ox 05/12/16 08:02 05/12/16 08:01 05/12/16 08:00 120/51 05/11/16 23:53 136/62 95 05/11/16 22:11 05/11/16 21:59 05/11/16 16:30 120/63 93 - Physical Examination General: Other (mild shortness of breath) HEENT: Positive: PERRL Neck: Positive: neck supple Cardiac: Positive: Reg Rate and Rhythm Lungs: Positive: Decreased Breath Sounds Neuro: Positive: Grossly Intact Extremities: Absent: edema
[2016-05-12] MEDS: HCTZ PO SCH (11:08)
[2016-05-12] MEDS: ALDACTONE PO SCH (11:09)
[2016-05-12] MEDS: CARDIZEM CD PO SCH (11:10)
[2016-05-12] MEDS: SPIRIVA IH SCH (11:40)
--- NOTE | 2016-05-12 16:13 | Gastroenterology Progress Note ---
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 Pt denies prior endoscopy. Unclear etiology, will plan for EGD tomorrow to visualize the mass and obtain biopsies. Discussed with pt, and agrees to have procedure done tomorrow. Subjective Date of service: 05/12/16 Principal diagnosis: duodenal mass, hematuria Interval history: pt denies new complaints today including abd pain, n/v, gi bleeding. Objective - Exam Narrative Exam: Gen: NAD, obese male CV: RRR Lungs: non labored, + wheezing Abd: soft, nt, nd, +bs - Constitutional Vitals: Temp Pulse Resp BP Pulse Ox 97.7 F 77 20 120/52 95 05/12/16 14:26 05/12/16 14:26 05/12/16 14:26 05/12/16 14:26 05/11/16 23:53 - Labs CBC & Chem 7: 05/10/16 04:47 05/10/16 04:47 Labs: Laboratory Results - last 24 hr 05/12/16 05/12/16 00:51 06:36 POC Glucose 133 H 128 H - Imaging CT scan: report reviewed MRI: report reviewed
--- NOTE | 2016-05-13 05:13 | Progress Note ---
Assessment and Plan - Patient Problems (1) UTI (urinary tract infection) Current Visit: Yes Status: Acute Qualifiers: Urinary tract infection type: site unspecified Hematuria presence: with hematuria Qualified Code(s): N39.0 - Urinary tract infection, site not specified; R31.9 - Hematuria, unspecified Plan to address problem: IV abx, IVF, supportive care. (2) Sepsis Current Visit: Yes Status: Acute Plan to address problem: SSepsis protocol:IV abx, IVF< supportive care, adjust abx based on culture results. (3) Atrial fibrillation Current Visit: No Status: Acute Plan to address problem: rate controlled, continue anticoagulation (4) COPD (chronic obstructive pulmonary disease) Current Visit: No Status: Chronic Plan to address problem: supplemental oxygen, nebs, pulmonary toilet, NIPPV as clinically indicated. (5) Diabetes mellitus Current Visit: No Status: Chronic Plan to address problem: ADA diet, insulin, accu check (6) Hematuria Current Visit: Yes Status: Resolved Plan to address problem: suspect secondary to anticoagulation, continue current care, outpatient urology f/u for cystoscopy (7) Pancreatic mass Current Visit: Yes Status: Acute Plan to address problem: EGD in AM, as per GI, biopsy, (8) DVT prophylaxis Current Visit: Yes Status: Acute History Interval history: Pt resting in bed, No reported nursing events overnight. Pt denies fever, chills , NVD<, pain, NO BRBPR overnight. Pt at bedside. Discussed care plan with patient and his . Pending Endoscopy and biopsy in AM. Hospitalist Physical - Constitutional Vitals: Temp Pulse Resp BP Pulse Ox 97.7 F 93 H 20 139/63 96 05/12/16 23:25 05/12/16 23:25 05/12/16 23:25 05/12/16 23:25 05/12/16 23:25 General appearance: Present: no acute distress, obese - EENT Eyes: Present: PERRL, EOM intact ENT: hearing intact - Neck Neck: Present: supple - Respiratory Respiratory: bilateral: CTA - Cardiovascular Rhythm: irregularly irregular Heart Sounds: Present: S1 & S2 - Extremities Extremities: no ischemia Peripheral Pulses: within normal limits - Abdominal General gastrointestinal: soft, non-tender, non-distended - Integumentary Integumentary: Present: clear, dry - Psychiatric Psychiatric: appropriate mood/affect, cooperative Results - Labs CBC & Chem 7: 05/10/16 04:47 05/10/16 04:47 Labs: Laboratory Last Values WBC 12.7 K/mm3 (4.5-11.0) H 05/10/16 04:47 RBC 4.48 M/mm3 (3.65-5.03) 05/10/16 04:47 Hgb 12.7 gm/dl (11.8-15.2) 05/10/16 04:47 Hct 39.3 % (35.5-45.6) 05/10/16 04:47 MCV 88 fl (84-94) 05/10/16 04:47 MCH 28 pg (28-32) 05/10/16 04:47 MCHC 32 % (32-34) 05/10/16 04:47 RDW 13.8 % (13.2-15.2) 05/10/16 04:47 Plt Count 355 K/mm3 (140-440) 05/10/16 04:47 Lymph % (Auto) 20.8 % (13.4-35.0) 05/10/16 04:47 [place] % (Auto) 7.1 % (0.0-7.3) 05/10/16 04:47 Eos % (Auto) 2.1 % (0.0-4.3) 05/10/16 04:47 Baso % (Auto) 0.4 % (0.0-1.8) 05/10/16 04:47 Lymph # 2.6 K/mm3 (1.2-5.4) 05/10/16 04:47 [place] # 0.9 K/mm3 (0.0-0.8) H 05/10/16 04:47 Eos # 0.3 K/mm3 (0.0-0.4) 05/10/16 04:47 Baso # 0.0 K/mm3 (0.0-0.1) 05/10/16 04:47 Seg Neutrophils % 69.6 % (40.0-70.0) 05/10/16 04:47 Seg Neutrophils # 8.9 K/mm3 (1.8-7.7) H 05/10/16 04:47 PT 13.0 Sec. (12.2-14.9) 05/09/16 13:37 INR 0.99 (0.87-1.13) 05/09/16 13:37 APTT 28.4 Sec. (24.2-36.6) 05/09/16 13:37 Sodium 133 mmol/L (137-145) L 05/10/16 04:47 Potassium 4.3 mmol/L (3.6-5.0) 05/10/16 04:47 Chloride 88.7 mmol/L (98-107) L 05/10/16 04:47 Carbon Dioxide 39 mmol/L (22-30) H 05/10/16 04:47 Anion Gap 10 mmol/L 05/10/16 04:47 BUN 8 mg/dL (9-20) L 05/10/16 04:47 Creatinine 0.5 mg/dL (0.8-1.5) L 05/10/16 04:47 Estimated GFR > 60 ml/min 05/10/16 04:47 BUN/Creatinine Ratio 16.00 % 05/10/16 04:47 Glucose 110 mg/dL (75-100) H 05/10/16 04:47 POC Glucose 155 (70-105) H 05/13/16 03:20 Calcium 9.1 mg/dL (8.4-10.2) 05/10/16 04:47 Total Bilirubin 0.2 mg/dL (0.1-1.2) 05/10/16 04:47 Direct Bilirubin < 0.2 mg/dL (0-0.2) 05/09/16 13:37 Indirect Bilirubin 0.1 mg/dL 05/09/16 13:37 AST 15 units/L (5-40) 05/10/16 04:47 ALT 24 units/L (7-56) 05/10/16 04:47 Alkaline Phosphatase 50 units/L (35-129) 05/10/16 04:47 Total Creatine Kinase 42 units/L (55-170) L 05/09/16 13:37 CK-MB (CK-2) 4.5 ng/mL (0.0-4.0) H 05/09/16 13:37 CK-MB (CK-2) Rel Index 10.7 (0-4) H 05/09/16 13:37 Troponin T < 0.010 ng/mL (0.00-0.029) 05/09/16 13:37 NT-Pro-B Natriuret Pep 89.36 pg/mL (0-900) 05/09/16 13:37 Total Protein 5.9 g/dL (6.3-8.2) L 05/10/16 04:47 Albumin 3.4 g/dL (3.9-5) L 05/10/16 04:47 Albumin/Globulin Ratio 1.4 % 05/10/16 04:47 Amylase 81 units/L (27-131) 05/09/16 13:37 Lipase 62 units/L (13-60) H 05/09/16 13:37 Urine Color Red (Yellow) 05/09/16 14:40 Urine Turbidity Cloudy (Clear) 05/09/16 14:40 Urine pH 6.0 (5.0-7.0) 05/09/16 14:40 Ur Specific [place] 1.015 (1.003-1.030) 05/09/16 14:40 Urine Protein 100 mg/dl mg/dL (Negative) 05/09/16 14:40 Urine Glucose (UA) 150 mg/dL (Negative) 05/09/16 14:40 Urine Ketones Neg mg/dL (Negative) 05/09/16 14:40 Urine Blood Lg (Negative) 05/09/16 14:40 Urine Nitrite Neg (Negative) 05/09/16 14:40 Urine Bilirubin Neg (Negative) 05/09/16 14:40 Urine Urobilinogen < 2.0 mg/dL (<2.0) 05/09/16 14:40 Ur Leukocyte Esterase Tr (Negative) 05/09/16 14:40 Urine WBC (Auto) > 182.0 /HPF (0.0-6.0) H 05/09/16 14:40 Urine RBC (Auto) > 182.0 /HPF (0.0-6.0) 05/09/16 14:40 U Epithel Cells (Auto) 2.0 /HPF (0-13.0) 05/09/16 14:40 Urine Mucus 1+ /HPF 05/09/16 14:40 Blood Type A NEGATIVE 05/09/16 13:37 Antibody Screen Negative 05/09/16 13:37
[2016-05-13] MEDS: NACL 0.9% 1000 ML 1,000 ML IV SCH (05:37)
[2016-05-13] MEDS ORDERED: WATER FOR IRRIG STERILE IR ONE (07:48)
[2016-05-13] MEDS ORDERED: PROVENTIL IH NR (08:15)
--- NOTE | 2016-05-13 08:19 | Progress Note ---
Assessment and Plan Assessment and plan: (1) UTI (urinary tract infection) - Treated with antibiotics (2) Sepsis - Sepsis protocol:IV abx, IVF< supportive care, adjust abx based on culture results. - Cultures are negative and antibiotics discontinued (3) Atrial fibrillation - rate controlled - xarelto discontinued because of hematuria (4) COPD (chronic obstructive pulmonary disease) supplemental oxygen, nebs, pulmonary toilet, NIPPV as clinically indicated. (5) Diabetes mellitus ADA diet, insulin, accu check (6) Hematuria suspect secondary to anticoagulation, continue current care, outpatient urology f/u for cystoscopy (7) Pancreatic mass EGD this morning, as per GI, biopsy, (8) DVT prophylaxis SCD History Interval history: Patient didn't have any new complaints, no nursing issues overnight. Hospitalist Physical - Physical exam Narrative exam: Not in cardiopulmonary distress. The patient appeared well nourished and normally developed. Vital signs as documented. Head exam is unremarkable. No scleral icterus . Neck is without jugular venous distension, thyromegaly, or carotid bruits. Lungs are clear to auscultation. Cardiac exam reveals regular rate and Rhythm. First and second heart sounds normal. No murmurs, rubs or gallops. Abdominal exam reveals normal bowel sounds, no masses, no organomegaly and no aortic enlargement. Extremities are nonedematous and both femoral and pedal pulses are normal. 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 No focal weakness. - Constitutional Vitals: Temp Pulse Resp BP Pulse Ox 97.7 F 93 H 20 139/63 96 05/12/16 23:25 05/12/16 23:25 05/12/16 23:25 05/12/16 23:25 05/12/16 23:25 General appearance: Present: no acute distress, obese Results - Labs CBC & Chem 7: 05/10/16 04:47 05/10/16 04:47 Labs: Laboratory Last Values WBC 12.7 K/mm3 (4.5-11.0) H 05/10/16 04:47 RBC 4.48 M/mm3 (3.65-5.03) 05/10/16 04:47 Hgb 12.7 gm/dl (11.8-15.2) 05/10/16 04:47 Hct 39.3 % (35.5-45.6) 05/10/16 04:47 MCV 88 fl (84-94) 05/10/16 04:47 MCH 28 pg (28-32) 05/10/16 04:47 MCHC 32 % (32-34) 05/10/16 04:47 RDW 13.8 % (13.2-15.2) 05/10/16 04:47 Plt Count 355 K/mm3 (140-440) 05/10/16 04:47 Lymph % (Auto) 20.8 % (13.4-35.0) 05/10/16 04:47 [place] % (Auto) 7.1 % (0.0-7.3) 05/10/16 04:47 Eos % (Auto) 2.1 % (0.0-4.3) 05/10/16 04:47 Baso % (Auto) 0.4 % (0.0-1.8) 05/10/16 04:47 Lymph # 2.6 K/mm3 (1.2-5.4) 05/10/16 04:47 [place] # 0.9 K/mm3 (0.0-0.8) H 05/10/16 04:47 Eos # 0.3 K/mm3 (0.0-0.4) 05/10/16 04:47 Baso # 0.0 K/mm3 (0.0-0.1) 05/10/16 04:47 Seg Neutrophils % 69.6 % (40.0-70.0) 05/10/16 04:47 Seg Neutrophils # 8.9 K/mm3 (1.8-7.7) H 05/10/16 04:47 PT 13.0 Sec. (12.2-14.9) 05/09/16 13:37 INR 0.99 (0.87-1.13) 05/09/16 13:37 APTT 28.4 Sec. (24.2-36.6) 05/09/16 13:37 Sodium 133 mmol/L (137-145) L 05/10/16 04:47 Potassium 4.3 mmol/L (3.6-5.0) 05/10/16 04:47 Chloride 88.7 mmol/L (98-107) L 05/10/16 04:47 Carbon Dioxide 39 mmol/L (22-30) H 05/10/16 04:47 Anion Gap 10 mmol/L 05/10/16 04:47 BUN 8 mg/dL (9-20) L 05/10/16 04:47 Creatinine 0.5 mg/dL (0.8-1.5) L 05/10/16 04:47 Estimated GFR > 60 ml/min 05/10/16 04:47 BUN/Creatinine Ratio 16.00 % 05/10/16 04:47 Glucose 110 mg/dL (75-100) H 05/10/16 04:47 POC Glucose 144 (70-105) H 05/13/16 05:35 Calcium 9.1 mg/dL (8.4-10.2) 05/10/16 04:47 Total Bilirubin 0.2 mg/dL (0.1-1.2) 05/10/16 04:47 Direct Bilirubin < 0.2 mg/dL (0-0.2) 05/09/16 13:37 Indirect Bilirubin 0.1 mg/dL 05/09/16 13:37 AST 15 units/L (5-40) 05/10/16 04:47 ALT 24 units/L (7-56) 05/10/16 04:47 Alkaline Phosphatase 50 units/L (35-129) 05/10/16 04:47 Total Creatine Kinase 42 units/L (55-170) L 05/09/16 13:37 CK-MB (CK-2) 4.5 ng/mL (0.0-4.0) H 05/09/16 13:37 CK-MB (CK-2) Rel Index 10.7 (0-4) H 05/09/16 13:37 Troponin T < 0.010 ng/mL (0.00-0.029) 05/09/16 13:37 NT-Pro-B Natriuret Pep 89.36 pg/mL (0-900) 05/09/16 13:37 Total Protein 5.9 g/dL (6.3-8.2) L 05/10/16 04:47 Albumin 3.4 g/dL (3.9-5) L 05/10/16 04:47 Albumin/Globulin Ratio 1.4 % 05/10/16 04:47 Amylase 81 units/L (27-131) 05/09/16 13:37 Lipase 62 units/L (13-60) H 05/09/16 13:37 Urine Color Red (Yellow) 05/09/16 14:40 Urine Turbidity Cloudy (Clear) 05/09/16 14:40 Urine pH 6.0 (5.0-7.0) 05/09/16 14:40 Ur Specific [place] 1.015 (1.003-1.030) 05/09/16 14:40 Urine Protein 100 mg/dl mg/dL (Negative) 05/09/16 14:40 Urine Glucose (UA) 150 mg/dL (Negative) 05/09/16 14:40 Urine Ketones Neg mg/dL (Negative) 05/09/16 14:40 Urine Blood Lg (Negative) 05/09/16 14:40 Urine Nitrite Neg (Negative) 05/09/16 14:40 Urine Bilirubin Neg (Negative) 05/09/16 14:40 Urine Urobilinogen < 2.0 mg/dL (<2.0) 05/09/16 14:40 Ur Leukocyte Esterase Tr (Negative) 05/09/16 14:40 Urine WBC (Auto) > 182.0 /HPF (0.0-6.0) H 05/09/16 14:40 Urine RBC (Auto) > 182.0 /HPF (0.0-6.0) 05/09/16 14:40 U Epithel Cells (Auto) 2.0 /HPF (0-13.0) 05/09/16 14:40 Urine Mucus 1+ /HPF 05/09/16 14:40 Blood Type A NEGATIVE 05/09/16 13:37 Antibody Screen Negative 05/09/16 13:37
--- NOTE | 2016-05-13 08:23 | Anesthesia Consultation ---
Anesthesia Consult and Med Hx Date of service: 05/13/16 - Airway Anesthetic Teeth Evaluation: Good ROM Head & Neck: Adequate Mental/Hyoid Distance: Adequate Mallampati Class: Class II Intubation Access Assessment: Probably Good - Pulmonary Exam CTA: Yes (decreased breath sounds bilat) - Cardiac Exam Cardiac Exam: RRR - Pre-Operative Health Status ASA Pre-Surgery Classification: ASA4 Proposed Anesthetic Plan: MAC - Pre-Anesthesia Comment Pre-Anesthesia Comments: h/o gross hematuria, AFIB , stage 4 COPD on Oxygen, on Xarelto which was d/c 4 days ago. - Pulmonary Hx Smoking: Yes SOB: Yes COPD: Yes (patient sees control systems [facility] at [facility]) Home Oxygen Therapy: Yes (3L/min) Hx Pneumonia: Yes (recent, treated with antibiotics) - Cardiovascular System Hx Hypertension: Yes Hx Coronary Artery Disease: No Hx Percutaneous Transluminal Coronary Angioplasty (PTCA): No Hx Cardia Arrhythmia: Yes (AFIB, LBBB) Hx Pacemaker: No Hx Internal Defibrillator: No Hx Valvular Heart Disease: No Hx Heart Murmur: No Hx Peripheral Vascular Disease: No - Central Nervous System Hx Psychiatric Problems: Yes (Depression) - Endocrine Hx Renal Disease: Yes (KIDNEY STONES) Hx Non-Insulin Dependent Diabetes: Yes - Other Systems Hx Cancer: No Hx Obesity: Yes
--- NOTE | 2016-05-13 08:23 | Anesthesia Day of Surgery ---
Anesthesia Day of Surgery - Day of Surgery Patient Examined: Yes Patient H&P Reviewed: Yes Patient is NPO: Yes
[2016-05-13] MEDS ORDERED: DIPRIVAN 10 MG/ML IV ONE (08:38)
[2016-05-13] MEDS: GLUCOTROL XL PO SCH (08:51)
[2016-05-13] MEDS ORDERED: ROBINUL ONE (08:56)
[2016-05-13] MEDS ORDERED: XYLOCAINE MPF 2% ONE (08:56)
[2016-05-13] MEDS ORDERED: PULMICORT IH ONE (09:00)
[2016-05-13] MEDS ORDERED: NACL 0.9% 1000 ML 1,000 ML IV SCH (09:00)
--- NOTE | 2016-05-13 10:15 | Post Anesthesia Evaluation ---
- Post Anesthesia Evaluation Patient Participated: Yes Airway Patent: Yes Stable Respiratory Function: Yes Nausea/Vomiting: No Temp > 96.8F: Yes Pain Manageable: Yes Adequeate Hydration: Yes Anesthesia Complications: No Block Receding Appropriately: Not Applicable Patient on Ventilator: No
--- NOTE | 2016-05-13 10:16 | Post Operative Note ---
Pre-op diagnosis: abnormal CT scan, duodenal mass Post-op diagnosis: other (multiple ulcerated masses starting from duodenal sweep and extending to 2nd portion of duodenum. The masses ranged from 2-8 cm in size and contained cratered ulcerations. Multiple biopsies were obtained. No obstruction) Findings: Duodenum: multiple ulcerated masses in duodenal sweep extending to 2nd portion of duodenum. Masses ranged in size from 2cm to ~5-6 cm. There were cratered ulcerations within a few masses. No obstruction. Biopsies obtained Procedure: EGD Anesthesia: MAC Surgeon: LG LIZ Estimated blood loss: minimal Pathology: list (duodenal mass biopsies) Specimen disposition: to lab Condition: stable Disposition: floor
--- NOTE | 2016-05-13 13:11 | Progress Note ---
Assessment and Plan Hematuria Atrial fibrillation, paroxysmal currently in sinus rhythm xarelto discontinued in the setting of hematuria COPD on home oxygen Duodenal mass s/p EGD with biopsy -GI following Recommended Once the urologist have seen him and evaluated his hematuria, oral anticoagulation can be resumed in the future after okay by urology. Conservative cardiac management. Subjective Date of service: 05/13/16 Principal diagnosis: duodenal mass, hematuria Interval history: Patient has no cardiac complaints post upper endoscopy. Objective Vital Signs Temp Pulse Pulse Pulse Pulse Resp Resp 05/13/16 10:54 97.3 F L 86 19 05/13/16 09:58 86 19 05/13/16 09:42 97 H 14 05/13/16 09:32 93 H 18 05/13/16 09:22 97.3 F L 90 15 05/13/16 08:00 97.6 F 80 16 05/13/16 07:36 97.6 F 81 18 05/12/16 23:25 97.7 F 93 H 20 05/12/16 20:15 98 H 16 05/12/16 20:13 05/12/16 20:06 97 H 17 05/12/16 16:00 98.6 F 77 20 05/12/16 14:26 97.7 F 77 20 BP BP Pulse Ox 05/13/16 10:54 121/70 97 05/13/16 09:58 121/70 97 05/13/16 09:42 128/68 96 05/13/16 09:32 119/35 98 05/13/16 09:22 124/55 98 05/13/16 08:00 130/65 100 05/13/16 07:36 111/59 97 05/12/16 23:25 139/63 96 05/12/16 20:15 05/12/16 20:13 97 05/12/16 20:06 05/12/16 16:00 121/55 05/12/16 14:26 120/52 - Physical Examination General: Other (mild shortness of breath) HEENT: Positive: PERRL Neck: Positive: neck supple Cardiac: Positive: Reg Rate and Rhythm Lungs: Positive: Decreased Breath Sounds, Rhonchi Neuro: Positive: Grossly Intact Abdomen: Positive: Soft Skin: Positive: Clear Extremities: Absent: edema
[2016-05-13] MEDS: ALDACTONE PO SCH (13:23)
[2016-05-13] MEDS: HCTZ PO SCH (13:23)
[2016-05-13] MEDS: CARDIZEM CD PO SCH (13:24)
--- NOTE | 2016-05-13 14:04 | Discharge Summary ---
Providers - Providers Date of Admission: 05/09/16 16:03 Date of discharge: 05/13/16 Attending physician: JESUS SANCHEZ MD 05/09/16 18:51 Consult to Physician [CONS] Routine Consulting Provider: PATITO BRAN Reason For Exam: afib on xarelto -now with hematuria Place consult to:: [place] [facility] Notified:: DR. BRAN Phone number called:: [phone] Was contact made?: Yes If yes, spoke with:: HELEN Time called:: 09:40 Comment:: LUCRECIA NOTIFIED Consult to Physician [CONS] Routine Consulting Provider: JAGJIT SALAZAR Reason For Exam: pancreatic mass Place consult to:: [facility] Notified:: DR. SALAZAR Primary care physician: [employer] Hospitalization Reason for admission: hematuria, pancreatic mass Condition: Stable Pertinent studies: EGD with biopsy Hospital course: Patient was admitted for hematuia, pancreatic mass and later it was found out to be duodnal mass EGD was done this morning and multiple biopsies were taken. He will follow with GI as an o/p for the result. Will follow with urology as an o/p for hematuria. The patient has no hematuria for the last few days and advised him to continue his xarelto and if hematuria recurs I advised to stop taking it Until he saw a urologist. Advised to have F/U with PCP. Disposition: DISCHARGED TO HOME OR SELFCARE Time spent for discharge: 33 minutes - Discharge Diagnoses (1) Pancreatic mass Status: Acute (2) Sepsis Status: Acute (3) UTI (urinary tract infection) Status: Acute Qualifiers: Urinary tract infection type: site unspecified Hematuria presence: with hematuria Qualified Code(s): N39.0 - Urinary tract infection, site not specified; R31.9 - Hematuria, unspecified (4) Hematuria Status: Resolved (5) Atrial fibrillation Status: Acute Comment: Sinus rhythm now continue calcium channel blockers and anticoagulation Core Measure Documentation - Palliative Care Palliative Care/ Comfort Measures: Not Applicable - Core Measures Any of the following diagnoses?: none Exam - Physical Exam Narrative exam: Not in cardiopulmonary distress. On [place] oxygen The patient appeared well nourished and normally developed. Vital signs as documented. Head exam is unremarkable. No sclera icterus . Neck is without jugular venous distension, thyromegaly, or carotid bruits. Lungs crackles on the posterior basal lung field. Cardiac exam reveals regular rate and Rhythm. First and second heart sounds normal. No murmurs, rubs or gallops. Abdominal exam reveals normal bowel sounds, no masses, no organomegaly and no aortic enlargement. Extremities are nonedematous and both femoral and pedal pulses are normal. CERTIFIED NURSES' AIDE: Alert and oriented 3. No focal weakness. - Constitutional Vitals: Temp Pulse Resp BP Pulse Ox 97.3 F L 86 19 121/70 97 05/13/16 10:54 05/13/16 13:24 05/13/16 10:54 05/13/16 13:24 05/13/16 10:54 Plan Activity: no restrictions Weight Bearing Status: Full Weight Bearing Diet: low cholesterol, low salt Durable Medical Equipment Needed Upon Discharge: Oxygen Follow up with: PRIMARY CARE, [Primary Care Provider] - 7 Days LG LIZ MD [Staff Physician] - 7 Days SAH SALINAS MD [Staff Physician] - 10 Days
[2016-05-13] MEDS: PULMICORT IH SCH (14:21)
[2016-05-13] MEDS: SPIRIVA IH SCH (14:22)
[2016-05-13 16:42] VITALS: BP 155/78
--- NOTE | 2016-05-14 11:05 | Operative Report ---
PREOPERATIVE DIAGNOSIS/INDICATION: Abnormal CT findings, duodenal masses on imaging. POSTOPERATIVE DIAGNOSES: Multiple ulcerated mass like lesions involving the duodenal sweep and extending to the second portion of the duodenum. The lesions ranged in size from 2 to 8 cm that contained crated ulcerations in many of the masses. Multiple biopsies were obtained. ANESTHESIA: Monitored anesthesia care. COMPLICATIONS: No immediate complications. DESCRIPTION OF PROCEDURE: After consent was obtained, the patient was placed in left lateral decubitus position. The standard Fujinon endoscope was advanced with direct vision through the mouth into the second portion of duodenum without difficulty. The patient tolerated the procedure well. The views of the mucosa were good. FINDINGS: 1. The esophagus appeared normal. 2. The stomach appeared normal. 3. There were multiple mass appearing lesions ranging in size from 2 to approximately 7 to 8 cm beginning in the duodenal sweep and extending to the second portion of the duodenum. Multiple of these masses contained central crated ulceration. There were no high risk bleeding lesion seen within the ulcer. There was no obstruction. The scope was able to pass beyond this point with ease. Multiple biopsies were obtained from the masses and edge of the ulcer. IMPRESSION: Multiple ulcerated duodenal mass like lesions of unclear etiology. Multiple biopsies were obtained. Differential includes carcinoid tumor, malignancy, infection, NSAIDs versus other. RECOMMENDATIONS: 1. Follow up pathology. 2. Avoid non-steroidal anti-inflammatory drugs. 3. The patient should follow up in the GI Clinic in one week if possibly surgery as well, although patient is a poor surgical candidate given his stage IV chronic obstructive pulmonary disease. 4. Okay for d/c home with close follow-up in 1 week [facility]# [id number] BRE/PENNY GALICIA
== END 2016-05-13 16:51 | disposition home or self-care (01) | DRG 872 ==
LOC: ED 11:07 → 3A 16:03
PROVIDERS: ADMIT Hospitalist; ATTEND Internal Medicine
PROC: 0DB98ZX Excision of Duodenum, Via Natural or Artificial Opening Endoscopic, Diagnostic (ICD-10-PCS; principal; 2016-05-13)
DX: A41.9 Sepsis, unspecified organism (principal); J96.10 Chronic respiratory failure, unspecified whether with hypoxia or hypercapnia; E87.1 Hypo-osmolality and hyponatremia; R19.09 Other intra-abdominal and pelvic swelling, mass and lump; E11.9 Type 2 diabetes mellitus without complications; I48.2 Chronic atrial fibrillation; J44.9 Chronic obstructive pulmonary disease, unspecified; I11.0 Hypertensive heart disease with heart failure; I50.9 Heart failure, unspecified; M19.90 Unspecified osteoarthritis, unspecified site; E78.00 Pure hypercholesterolemia, unspecified; N30.91 Cystitis, unspecified with hematuria; F32.9 Major depressive disorder, single episode, unspecified; E66.9 Obesity, unspecified; I48.0 Paroxysmal atrial fibrillation; Z79.01 Long term (current) use of anticoagulants; Z99.81 Dependence on supplemental oxygen; Z87.442 Personal history of urinary calculi; Z98.890 Other specified postprocedural states; Z87.891 Personal history of nicotine dependence; Z79.899 Other long term (current) drug therapy; Z82.49 Family history of ischemic heart disease and other diseases of the circulatory system; Z68.30 Body mass index [BMI] 30.0-30.9, adult
CPT/HCPCS: 36415; 71010; 74176; 74181; 80048; 80053; 80074; 81001; 82150; 82550; 82553; 82962; 83690; 83880; 84484; 85025; 85610; 85730; 86850; 86900; 86901; 87086; 88305; 88342; 93005; 93010; 94640; 94644; A9270-GY; J0696; J2704; J7030

== ENCOUNTER 2016-05-28 12:23 | Day surgery (SDC) | payer MEDICARE ==
[~2016-05-28 12:23] MED LIST: ANCEF/STERILE WATER 2 GM/20 ML IV NR
--- NOTE | 2016-05-28 13:18 | Anesthesia Consultation ---
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
--- NOTE | 2016-05-28 13:18 | Anesthesia Day of Surgery ---
Anesthesia Day of Surgery - Day of Surgery Patient Examined: Yes Patient H&P Reviewed: Yes Patient is NPO: Yes Cardiac Clearance: Yes
[2016-05-28] MEDS ORDERED: PULMICORT IH NR (13:20)
[2016-05-28] MEDS ORDERED: MORPHINE IV PRN (13:21)
[2016-05-28] MEDS ORDERED: ZOFRAN IV PRN (13:21)
[2016-05-28] MEDS ORDERED: NACL BACTERIOSTATIC INFILTRATI ONE (13:27)
[2016-05-28] MEDS ORDERED: PROVENTIL IH NR (13:30)
[2016-05-28] MEDS ORDERED: REGLAN IV NR (14:00)
[2016-05-28] MEDS ORDERED: NACL 0.9% 1000 ML 1,000 ML IV SCH (14:00)
[2016-05-28] MEDS ORDERED: PEPCID IV NR (14:00)
--- NOTE | 2016-05-28 14:22 | Post Operative Note ---
Pre-op diagnosis: severe r flanl pain ureteral stone Post-op diagnosis: same Findings: as above Procedure: cysto rpg stent laser ureteroscopy Anesthesia: GOGO Surgeon: ASH SALINAS Estimated blood loss: none Condition: stable Disposition: PACU
--- NOTE | 2016-05-28 14:23 | Discharge Summary ---
Short Stay Discharge Plan Activity: other (no straining ) Weight Bearing Status: Partial Weight Bearing Diet: low fat, low cholesterol, low salt Special Instructions: other (inc fluids ) Durable Medical Equipment Needed Upon Discharge: other (pt has j stent ) Follow up with: PRIMARY CARE, [Primary Care Provider] - 7 Days
[2016-05-28] MEDS ORDERED: DILAUDID ONE (14:42)
[2016-05-28] MEDS ORDERED: DIPRIVAN 10 MG/ML IV ONE (14:42)
[2016-05-28] MEDS ORDERED: XYLOCAINE MPF 2% ONE (15:30)
[2016-05-28] MEDS ORDERED: ZOFRAN ONE (15:30)
[2016-05-28] MEDS ORDERED: NEO SYNEPHRINE/NS Syringe(OR USE) IV ONE (15:57)
[2016-05-28] MEDS ORDERED: LASIX ONE (16:06)
[2016-05-28] MEDS ORDERED: OMNIPAQUE 300 MG/50 ML (CATH LAB) IV ONE (16:36)
[2016-05-28] MEDS ORDERED: WATER FOR IRRIG STERILE IR ONE (16:36)
--- NOTE | 2016-05-28 17:34 | Post Anesthesia Evaluation ---
- Post Anesthesia Evaluation Patient Participated: Yes Airway Patent: Yes Stable Respiratory Function: Yes Nausea/Vomiting: No Temp > 96.8F: Yes Pain Manageable: Yes Adequeate Hydration: Yes Anesthesia Complications: No
[2016-05-28 17:57] VITALS: BP 142/69
--- NOTE | 2016-05-28 21:44 | Operative Report ---
PREOPERATIVE DIAGNOSES: Severe right flank pain, severe obstruction. POSTOPERATIVE DIAGNOSES: Severe right flank pain, severe obstruction with impacted mid to low ureteral stones. PROCEDURE: Cystoscopy, right retrograde, right ureteral balloon dilatation, ureteroscopy, laser of the stone, and insertion of double-J stent. SURGEON: John Fernandez MD ANESTHESIA: General. FINDINGS: This gentleman who is very sick and chronically ill with multiple medical problems presented with severe pain. He now presents for treatment, found to have a right ureteral stone. DESCRIPTION OF PROCEDURE: The patient was brought to the operating room and placed on the operating table. Following induction of anesthesia, placed in lithotomy position, prepped and draped in usual sterile fashion. Cystourethroscopy showed 2+ trabeculated bladder with bilobar hypertrophy. There were no bladder tumors. Retrograde on the right showed the stone to be at the level of the vessels on the right lower to mid ureter. A Glidewire coiled in the kidney, balloon dilatation was carried out. Using the rigid ureteroscope, the stone was well seen embedded in the wall of the ureter. Using a , the stone was broken into many-many pieces and then the ureter was quite open. We did not try to extract any of the stones. Once broken into multiple stones, the retrograde showed a very dilated ureter. We placed a 7-Macedonian 26 cm double J in the kidney and bladder. The patient tolerated the procedure well. The fragments in the bladder were looked out. They were very small. He was brought to the recovery room with an 18 Tineo in stable condition. Family notified. JOB# [id number] ULYSSES/PENNY
--- NOTE | 2016-05-29 10:01 | Fluoroscopy Report ---
RETROGRADE PYELOGRAM: FINDINGS: Partial opacification of the right ureter demonstrates mild dilatation of the ureter. A ureteral stone was seen at ureteroscopy. Laser lithotripsy and balloon dilatation were performed. A double-J right ureteral stent is demonstrated in satisfactory position on the final image.
== END 2016-05-28 12:24 | disposition home or self-care (01) ==
LOC: OR 12:23
PROVIDERS: ATTEND Urology
DX: N20.1 Calculus of ureter (principal); N32.89 Other specified disorders of bladder; N40.0 Benign prostatic hyperplasia without lower urinary tract symptoms; J44.9 Chronic obstructive pulmonary disease, unspecified; I10 Essential (primary) hypertension; I48.91 Unspecified atrial fibrillation; F32.9 Major depressive disorder, single episode, unspecified; E11.9 Type 2 diabetes mellitus without complications; E66.9 Obesity, unspecified; Z68.35 Body mass index [BMI] 35.0-35.9, adult; Z99.81 Dependence on supplemental oxygen; Z87.01 Personal history of pneumonia (recurrent); Z87.440 Personal history of urinary (tract) infections; Z87.891 Personal history of nicotine dependence
CPT/HCPCS: 52356; 74420; 82962; A4217; C1726; C1758; C1769; C2617; J0690; J1170; J1940; J2370; J2405; J2704; J2765; J7030; Q9967; 82365

== ENCOUNTER 2019-04-18 12:47 | Outpatient (CLI) | payer MEDICARE ==
--- NOTE | 2019-04-18 18:37 | Cat Scan Report ---
CT ABDOMEN AND PELVIS WITHOUT CONTRAST INDICATION / CLINICAL INFORMATION: R31.29 OTHER MICROSCOPIC HEMATURIA. TECHNIQUE: Axial CT images were obtained through the abdomen and pelvis without IV contrast. All CT scans at [facility] location are performed using CT dose reduction for ALARA by means of automated exposure control. COMPARISON: None available. FINDINGS: LOWER CHEST: No significant abnormality. LIVER: No significant abnormality. GALLBLADDER: No significant abnormality. BILE DUCTS: No significant abnormality. PANCREAS: No significant abnormality. SPLEEN: No significant abnormality. ADRENALS: Stable left adrenal nodule RIGHT KIDNEY and URETER: No interval change in the multiple renal cyst. Several calcifications are pr esent left collecting system. LEFT KIDNEY and URETER: No interval change in the multiple renal cyst. Several calcifications present right collecting system STOMACH and SMALL BOWEL: In comparison with previous exam there is been a decrease in the mass adjace nt to the duodenum which demonstrates internal calcifications The mass measures 3.6 cm in diameter an d on previous exam measured 6.32 cm in diameter. COLON: Extensive diverticulosis of the descending colon and sigmoid colon without evidence of diverti culitis APPENDIX: No significant abnormality. PERITONEUM: No free fluid. No free air. No fluid collection. LYMPH NODES: No significant adenopathy. AORTA and ARTERIES: Atherosclerotic calcified plaque infrarenal abdominal aorta IVC and VEINS: No significant abnormality. URINARY BLADDER: No significant abnormality. REPRODUCTIVE ORGANS: No significant abnormality. ADDITIONAL FINDINGS: None. SKELETAL SYSTEM: Degenerative changes are present lumbar spine IMPRESSION: 1. Decreased size of the duodenal mass as noted by report 2. Extensive diverticulosis of the descending colon sigmoid colon 3. Bilateral nephrolithiasis 4. Bilateral renal cyst noted 5. Stable left adrenal nodule Signer Name: Duran Gastelum MD Signed: 04/18/2019 6:33 PM Workstation Name: [id number]
== END 2019-04-18 12:48 | disposition home or self-care (01) ==
LOC: CT 12:47
PROVIDERS: ATTEND Urology
DX: N28.1 Cyst of kidney, acquired (principal); N20.0 Calculus of kidney; K57.10 Diverticulosis of small intestine without perforation or abscess without bleeding
CPT/HCPCS: 74176